=== PATIENT | female | born 1935 | race Caucasian/White ===

== ENCOUNTER → 2021-07-01 10:25 | Outpatient (BNVA) | payer MEDICARE, SELFPAY | PROVIDERS: PCP Internal Medicine; Visit Provider Hospitalist | DX: R91.8 Other nonspecific abnormal finding of lung field (principal); R05.3 Chronic cough; R13.10 Dysphagia, unspecified; R93.3 Abnormal findings on diagnostic imaging of other parts of digestive tract; K44.9 Diaphragmatic hernia without obstruction or gangrene | CPT/HCPCS: 99212 ==

== ENCOUNTER → 2021-09-12 08:48 | Outpatient (BNVA) | payer MEDICARE, SELFPAY | PROVIDERS: PCP Internal Medicine; Referring Provider Internal Medicine; Visit Provider Physician Assistant | DX: R13.10 Dysphagia, unspecified (principal); R93.3 Abnormal findings on diagnostic imaging of other parts of digestive tract; K44.9 Diaphragmatic hernia without obstruction or gangrene; K22.2 Esophageal obstruction; R19.7 Diarrhea, unspecified | CPT/HCPCS: 99202 ==

== ENCOUNTER 2021-09-26 14:46 | Outpatient (REF) | payer MEDICARE, SELFPAY ==
--- NOTE | ~2021-09-26 | FL_ITS ---
EXAMINATION: XR BARIUM SWALLOW CLINICAL INFORMATION: Penetration seen on barium swallow. COMPARISON: Previous barium swallow April 2021. TECHNIQUE: Fluoroscopic guidance was provided for modified barium swallow performed by the speech and hearing department. The patient received liquid barium, thickened liquid barium and various food media mixed with barium. FINDINGS: No aspiration or penetration is seen with any media. FLUOROSCOPY TIME: 1.2 minutes DOSE AREA PRODUCT: 1.2 Brizuela per centimeter squared. FL/FL barium swallow modified IMPRESSION: Fluoroscopic guidance provided for modified barium swallow performed by the speech and hearing department. No aspiration or penetration seen.
--- NOTE | 2021-09-26 18:20 | MHC.SL.IMP ---
Date of Plan of Treatment: 09/26/21 Onset of Symptoms/Illness: 09/26/20 Date Treatment Started: 09/26/21 Admitting Diagnosis: Abnormal barium swallow Chronic cough Dysphagia Hiatal hernia Pulmonary nodules Primary Speech & Language Diagnosis: R13.12 Oropharyngeal Phase Dysphagia Secondary Speech & Language Diagnosis: R41.841 Cognitive communication disorder Reason for Today's Visit: 93651 Modified Barium Swallow Study Pre-evaluation Dietary Consistencies: Regular Pre-evaluation Liquid Consistency: Thin Pre-evaluation Medication Administration: Whole with Liquid Medical History: Modified Barium Swallow Study Fluoroscopic Evaluation of Swallowing Function CPT Code 96465 Evaluation Year: 2021 Reason for Study: Patient coughs during meals. Referring Physician: Ruiz Washington M.D. Evaluating Clinician: Martha Wagner MA, CCC-MAGNETIC DOCTOR Study Number: 1 Patient Name: Xiomara Smith Status: Outpatient, Ambulatory/Assisted Age: 86 Gender: Female MEDICAL HISTORY: Year of Onset or Diagnosis: 2020 Comorbidities: Abnormal barium swallow Chronic cough Dysphagia Hiatal hernia Pulmonary nodules Current (pre-evaluation) Intake/Diet: Route: PO Diet Grade: Regular Liquid Consistencies: Thin Pre-Study Functional Oral Intake Scale (FOIS): 7- Total oral intake with no restrictions Pain: None reported at time of study SUBJECTIVE: Patient is an 86 year old female referred for a modified barium swallow study by Ruiz Washington MD of Pulmonology. Patient attended this exam accompanied by her daughter, who assisted in providing background information. Per chart review, patient is with known history of dementia. Patient?s daughter reported that patient eats regular food with thin liquids; meats are cut into small bite size pieces for her. She reports that patient coughs a lot when eating or drinking, denies pain when swallowing. Patient had barium swallow on 04/27/2021: ?FINDINGS: The patient swallowed barium without difficulty. No nasopharyngeal reflux or tracheal aspiration was identified during initial swallowing. No cricopharyngeal hypertrophy or Zenker's diverticulum was noted. There is normal elevation of the soft palate while saying candy . There is normal apposition of the focal cords while saying E . One-half inch diameter barium tablet passed without difficulty. There is a-motility while swallowing prone. Tertiary contractions are present. There is a small hiatal hernia. There is a Schatzki's ring. No esophageal mucosal irregularity is appreciated. While laying prone, the esophagus did not empty and there were times of reflux from the thoracic esophagus into the cervical esophagus and oropharynx. On one episode of the reflux, there was noted to be transition penetration which elicited a cough. No mickey aspiration.? FL/FL barium swallow IMPRESSION: Severe esophageal dysmotility/a-motility. Small hiatal hernia. No persistent stricture or mucosal abnormality appreciated. Schatzki's ring present. There was noted to be an episode of oropharynx reflux with transient penetration. This elicited a cough reflex.? Oral Motor Exam Facial Symmetry: Symmetrical Mouth Occlusion: Normal Oral-Facial Teeth Characteristics: Intact/Normal Oral-Facial Smile (Lips) Description: Normal Tongue Size: Normal Tongue Excursion Description: Normal Tongue Range of Movement Description: Normal Tongue Movement Characteristics: Normal/Absent Is patient able to manage secretions?: Yes Food and Liquid Trials: Oral Impairment: Lip Closure: Did not test Oral Impairment: Tongue Control During Bolus Hold: 0=Cohesive bolus between tongue to palatal seal Oral Impairment: Bolus Preparation/Mastication: 1=Slow prolonged chewing/mashing with complete re-collection Oral Impairment: Bolus Transport/Lingual Motion: 3=Repetitive/disorganized tongue motion Oral Impairment: Oral Residue: 2=Residue collection on oral structures Oral Impairment:Initiation of Pharyngeal Swallow: 3=Bolus head in pyriforms Pharyngeal Impairment: Soft Palate Elevation: 0=No bolus between soft palate (SP)/pharyngeal wall (PW) Pharyngeal Impairment: Laryngeal Elevation: 1=Partial thyroid cartilage/arytenoids to epiglottic petiole movement Pharyngeal Impairment: Anterior Hyoid Excursion: 1=Partial anterior movement Pharyngeal Impairment: Epiglottic Movement: 0=Complete inversion Pharyngeal Impairment: Laryngeal Vestibular Closure:: 0=Complete: no air/contrast in laryngeal vestibule Pharyngeal Impairment: Pharyngeal Stripping Wave: 1=Present: diminished Pharyngeal Impairment: Pharyngeal Contraction: Did not test Pharyngeal Impairment: Pharyngoesophageal Segment Openin=Complete distension and complete duration: no obstruction of flow Pharyngeal Impairment: Tongue Base (TB) Retraction: 2=Narrow column of contrast/air between TB and posterior PW Pharyngeal Impairment: Pharyngeal Residue: 0=Complete pharyngeal clearance Pharyngeal Impairment: Esophageal Clearance Upright Position: Did not test Impressions and Recommendations Clinical Observations: OBJECTIVE: Time-out: performed at 03:15 Evaluation Start: 03:00; Stop: 03:05 Patient Positioning: Seated 70-90 degrees Viewing Planes: LATERAL ONLY Contrast: MBSImP? Standardized Protocol using commercially prepared, standardized Barium viscosities, including: Varibar? THIN LIQUID (40% w/v, <15 cps) , 1/2 Shortbread Cookie (1 x1 x.25 ) [id number] ID: [id number] [facility]: Lip closure for intraoral bolus containment could not be assessed due to logistical reasons not related to physiologic impairment. Tongue control during bolus hold maintained a cohesive bolus held between tongue to palate seal. Bolus preparation and mastication resulted in slow, prolonged chewing/mashing but with complete re-collection. Bolus transport/lingual motion was with repetitive/disorganized motion of the tongue. Oral residue was a collection on oral structures. Initiation of the pharyngeal swallow occurred when the bolus head was in the pyriform sinuses. Soft palate elevation resulted in no bolus between the soft palate and the pharyngeal wall. Laryngeal elevation was decreased, with partial superior movement of the thyroid cartilage/partial approximation of the arytenoids to the epiglottic petiole. Anterior hyoid excursion demonstrated partial anterior movement. Epiglottic movement resulted in complete inversion. Laryngeal vestibular closure was complete, as indicated by no air or contrast within the laryngeal vestibule at the height of the swallow. Pharyngeal stripping wave was present, but diminished. Pharyngeal contraction could not be determined due to logistical reasons not related to physiologic impairment. Pharyngoesophageal segment opening was completely distended for complete duration with no obstruction of bolus flow. Tongue base retraction allowed a narrow column of contrast or air between the retracted tongue base and the posterior pharyngeal wall. Pharyngeal residue was not present. There was complete pharyngeal clearance. Esophageal clearance in the upright position could not be assessed due to logistical reasons not related to physiologic impairment. Oral Impairment Score: 9 (absence of score, component 1) Pharyngeal Impairment Score: 5 (absence of score, component 13) Esophageal Impairment Score: --- (absence of score, component 17) Laryngeal Penetration and Aspiration: Neither penetration nor aspiration was observed in today's study with Cookie, Thin. ASSESSMENT: Clinician Assessment: This exam was conducted by a multidisciplinary team which included radiologist, speech pathologist, and breeder hen service technician. Patient was seated upright at 90 degree angle in chair for lateral view only. Patient consumed the following liquid and solid consistencies: thin liquid barium via cup, pureed solid (mixture applesauce with barium paste), ground solid (mixture chicken salad with barium paste), regular solid (Sandra Doone cookie coated with barium paste). Patient demonstrated good tongue control, maintaining cohesive bolus between tongue to palatal seal. There was no premature posterior escape. Mastication was mildly prolonged. Posterior lingual movements for transport of bolus were disorganized and repetitive. Mild oral residue cleared with subsequent swallow. Pharyngeal swallow trigger was delayed, initiated as bolus head reached pyriform sinuses. There was no nasopharyngeal reflux. Noted partial laryngeal elevation with partial anterior hyoid excursion. Complete epiglottic inversion. Complete laryngeal vestibular closure. There was no evidence of penetration or aspiration with solids and liquids during this exam. Complete pharyngeal clearance. No obstruction of flow through pharyngoesophageal segment opening. Liquid Intake Recommendation: Thin Liquid Intake Strategies: Small Sips Dietary Recommendations: Regular Medication Administration: Whole with Puree Please contact the pharmacy regarding appropriate crushable or liquid drug formulations that are available whenever modified delivery is recommended. Compensatory Strategies Recommended: Sitting Upright (90 deg), Small Bites and Sips, Alternate Liquids/Solids, Rate of Ingestion Change, Avoid Specific Foods Supervision during eating and or drinking: Total Supervision (1:1) Recommendation for Speech Therapy: NA:Typical Evaluation Text Comment: Intake Recommendations: Route: PO Diet Grade: Regular Liquid Consistencies: Thin Post-Study Functional Oral Intake Scale (FOIS): 7- Total oral intake with no restrictions There was no evidence of aspiration or penetration during this exam. Mild oral residue cleared with subsequent swallow. Complete pharyngeal clearance. Recommend patient to continue with REGULAR solids and THIN liquids, pills in PUREE or LIQUID per tolerance. Continue cutting foods, such as meats, into small bite size pieces as needed, and moisten with sauces and gravies. Avoid any tough foods which are difficult for patient to chew. Aspiration precautions include: -Take small, individual sips of liquid -Avoid ?chugging? consecutive sips of liquid -One bite at a time and chew food well -Moisten food with sauce/gravy as needed -Double swallow or take a sip of liquid to wash residue -Avoid foods which cause you more difficulty swallowing (i.e. tough meats) -Upright 90 degree position when eating/drinking Given underlying dementia, recommend patient and family to continue monitoring dysphagia. Contact PCP if there is any worsening of dysphagia, in which case patient may need re-evaluation. Therapy Recommendations: Therapy will be discontinued Prognosis for Improvement: The prognosis for the patient to meet nutritional needs by mouth is excellent based on degree of impairment. Clinician - Supplemental, Miscellaneous Communication: It is important to note MBSS objective studies are snapshots in time and Patient function might vary with factors such as time of day or concomitant medical conditions. For this reason, the final treatment plan for this patient should rest with their medical care team. Additional recommendations should be considered with the totality of the Patient in mind. Thank for the opportunity to participate in the care of this patient. If you have any questions about the content of this report, please contact the [facility] at [facility]. Bag Bailer Clinician/Clinical Fellow: No Supervisory Statement: N/A Speech Language Pathologist: Martha Wagner M.A., CCC-MAGNETIC DOCTOR
== END 2021-09-26 14:47 | disposition home or self-care (01) ==
LOC: HO.XRAY 14:46
PROVIDERS: Visit Provider Hospitalist
DX: R13.10 Dysphagia, unspecified (principal); R93.3 Abnormal findings on diagnostic imaging of other parts of digestive tract
CPT/HCPCS: 74230; 92611

== ENCOUNTER 2021-10-31 10:20 | Outpatient (REF) | payer MEDICARE, MEDICAID, SELFPAY ==
[2021-10-31 11:42] LABS: Cholesterol 216 mg/dL; HDL Cholesterol 46 mg/dL; LDL Cholesterol Calculated 138 mg/dl; Triglycerides 160 mg/dL
== END 2021-10-31 10:21 | disposition home or self-care (01) ==
LOC: HO.LAB 10:20
PROVIDERS: PCP Internal Medicine; Visit Provider Internal Medicine
DX: Z00.00 Encounter for general adult medical examination without abnormal findings (principal)
CPT/HCPCS: 36415; 80061

== ENCOUNTER 2021-11-10 08:58 | Outpatient (REF) | payer MEDICARE, MEDICAID, SELFPAY ==
[2021-11-10 09:53] LABS: Anion Gap 15 (12-20); Blood Urea Nitrogen 17 mg/dL (9-16); Calcium 9.3 mg/dL (8.4-10.2); Carbon Dioxide 29 mmol/L (22-29); Chloride 102 mmol/L (96-108); Estimated Glomerular Filt Rate > 60; Glucose Random 114 mg/dL (60-115); Sodium 142 mmol/L (135-145)
[2021-11-10 11:18] LABS: Creatinine Urine 177.68 mg/dL; Microalbum/Creatinine Ratio Ur 6.7 ug/mg cr
== END 2021-11-10 08:59 | disposition home or self-care (01) ==
LOC: HO.LAB 08:58
PROVIDERS: Visit Provider Internal Medicine
DX: Z00.00 Encounter for general adult medical examination without abnormal findings (principal)
CPT/HCPCS: 36415; 80048; 82043

== ENCOUNTER 2021-11-14 11:29 | Outpatient (REF) | payer MEDICARE, MEDICAID, SELFPAY ==
[2021-11-14 12:16] LABS: Hematocrit 36.6 % (37.0-47.0); Hemoglobin 11.5 g/dl (12.0-16.0); Mean Corpuscular HGB Conc 31.4 g/dl (31.0-35.0); Mean Corpuscular Hemoglobin 28.8 pg (27.0-33.0); Mean Corpuscular Volume 91.7 fL (80.0-98.0); Mean Platelet Volume 10.8 fL (9.4-12.3); Platelet Count 239 X10*3/uL (160-400); Red Blood Count 3.99 X10*6/uL (4.20-5.50); Red Cell Distribution Width 13.6 % (11.0-16.0); White Blood Count 6.6 X10*3/uL (4.8-10.8)
== END 2021-11-14 11:30 | disposition home or self-care (01) ==
LOC: HO.LAB 11:29
PROVIDERS: PCP Internal Medicine; Visit Provider Internal Medicine
DX: R13.10 Dysphagia, unspecified (principal); R10.84 Generalized abdominal pain; R19.7 Diarrhea, unspecified; R63.4 Abnormal weight loss; R93.3 Abnormal findings on diagnostic imaging of other parts of digestive tract; K22.2 Esophageal obstruction; K44.9 Diaphragmatic hernia without obstruction or gangrene
CPT/HCPCS: 36415; 85027; 99212

== ENCOUNTER → 2021-12-23 09:03 | Outpatient (BNVA) | payer MEDICARE, SELFPAY | PROVIDERS: PCP Internal Medicine; Visit Provider Hospitalist | DX: R91.8 Other nonspecific abnormal finding of lung field (principal); K44.9 Diaphragmatic hernia without obstruction or gangrene; R05.3 Chronic cough; R13.10 Dysphagia, unspecified; R93.3 Abnormal findings on diagnostic imaging of other parts of digestive tract | CPT/HCPCS: 99212 ==

== ENCOUNTER 2022-01-03 07:54 | Outpatient (REF) | payer MEDICARE, SELFPAY ==
--- NOTE | ~2022-01-03 | CT_ITS ---
EXAMINATION: CT CHEST WITH CONTRAST CLINICAL INFORMATION: Dysphagia COMPARISON: Previous chest CT January 2021 and chest x-ray June 2020 TECHNIQUE: Multidetector volumetric CT imaging of the chest was obtained after the administration of 65 mL of Omnipaque 350 intravenous contrast without immediate adverse reactions. Axial MIP volume rendering provided. Sagittal and coronal reformatted images were obtained. This CT examination was performed using dose optimization techniques as appropriate, variously including the following: *Automated exposure control *Adjustment of mA and/or kV according to patient size (this includes techniques or standardized protocols for targeted exams where dose is matched to indication/reason for exam; i.e. extremities or head) *Use of iterative reconstruction technique DLP: 95 mGy-cm FINDINGS: TEACHER DRAMA: LUNGS: Slight volume loss to the left hemithorax with shift the central mediastinal structures to the left. Pleural and parenchymal scarring and 5 mm calcification in the peripheral or subpleural lateral right lower lobe axial image 107 series 5. The area of mucus plugging in the apical posterior segment of the left upper lobe adjacent to the fissure appears slightly improved for example axial image 80 series 5. The lungs are otherwise clear. MEDIASTINUM: Normal heart size. Small pericardial effusion that is stable. No enlarged lymph nodes. Atherosclerotic disease of the thoracic aorta. Normal-appearing thyroid gland. Question mild wall thickening of the thoracic esophagus. Esophageal hernia. CORONARY ARTERY CALCIFICATION: Moderate PLEURA: There is no pleural effusion. No pleural mass. Stable mild pleural thickening adjacent to the lateral right lower lobe. AXILLA: No lymphadenopathy. UPPER ABDOMEN: Bilateral renal cysts. Small left adrenal nodule that is stable. OSSEOUS STRUCTURES: Degenerative changes. Severe old T12 vertebral body compression fracture unchanged. CT/CT chest w IV con IMPRESSION: Stable pleural parenchymal scarring in the lateral right lower lobe. Slight interval improvement in mucus plugging in the left upper lobe. Question mild wall thickening of the thoracic esophagus and small esophageal hernia. Moderate coronary artery calcification. Stable small pericardial effusion. Fleischner guidelines were followed.
[2022-01-03 10:15] LABS: Creatinine POC 0.8 mg/dL (0.5-1.4); GFR POC > 60
== END 2022-01-03 07:55 | disposition home or self-care (01) ==
LOC: HO.CT 07:54
PROVIDERS: PCP Internal Medicine; Visit Provider Internal Medicine
DX: R19.7 Diarrhea, unspecified (principal)
CPT/HCPCS: 71260; 82565

== ENCOUNTER 2022-01-10 11:29 | Emergency (ER) | payer MEDICARE, SELFPAY ==
--- NOTE | ~2022-01-10 | XR_ITS ---
EXAMINATION: XR CHEST CLINICAL INFORMATION: Fever COMPARISON: 07/13/2019 TECHNIQUE: Frontal view of the chest was obtained. FINDINGS: No significant abnormality is noted involving the heart, lungs, mediastinum, bony thorax or soft tissues. Some bibasilar atelectasis is present. Degenerative changes noted in the right shoulder. XR/XR chest 1V IMPRESSION: No acute intrathoracic disease.
--- NOTE | ~2022-01-10 | CT_ITS ---
EXAMINATION: CT HEAD WITHOUT CONTRAST CLINICAL INFORMATION: Worsening altered mental status. COMPARISON: None. TECHNIQUE: Contiguous axial imaging was performed from the skull base to vertex without intravenous administration of contrast. Coronal and sagittal reformatted images are performed at the CT scanner. [This CT examination was performed using dose optimization techniques as appropriate, variously including the following: *Automated exposure control *Adjustment of mA and/or kV according to patient size (this includes techniques or standardized protocols for targeted exams where dose is matched to indication/reason for exam; i.e. extremities or head) *Use of iterative reconstruction technique] DLP: 631 mGy-cm. FINDINGS: There is no evidence of acute intracranial hemorrhage or territorial infarction. No abnormal mass-effect or midline shift is seen. [place]a to white matter differentiation is well preserved. No extra-axial fluid collections are identified. There is generalized global volume loss. There is moderate prominence of the ventricles and the sulci . There is mild hypodensity of the periventricular white matter due to chronic small vessel ischemic disease. There are vascular calcifications of the internal carotid arteries bilaterally. There is no osseous abnormality. The mastoid air cells and visualized portions of the paranasal sinuses are well-aerated. CT/CT head/brain wo IV con IMPRESSION: No acute intracranial pathology.
--- NOTE | ~2022-01-10 | CT_ITS ---
EXAMINATION: CT ABDOMEN AND PELVIS WITH CONTRAST CLINICAL INFORMATION: Weakness COMPARISON: 03/10/2018 TECHNIQUE: Multidetector volumetric images were obtained from the superior aspect of the liver through the pubic symphysis following administration 85 mL of Omnipaque 350 intravenous contrast. Sagittal and coronal reformatted images were obtained on the technologist's workstation. Oral contrast: No This CT examination was performed using dose optimization techniques as appropriate, variously including the following: *Automated exposure control *Adjustment of mA and/or kV according to patient size (this includes techniques or standardized protocols for targeted exams where dose is matched to indication/reason for exam; i.e. extremities or head) *Use of iterative reconstruction technique DLP: 621 mGy-cm FINDINGS: LUNG BASES: The visualized lung bases are clear. Coronary artery calcifications. LIVER, GALLBLADDER, AND BILIARY TREE: The liver is normal in size, shape, and attenuation. No focal hepatic lesion. There is mild intrahepatic biliary ductal dilatation present. Stones are seen throughout the gallbladder lumen. Somewhat distended gallbladder. No wall thickening. The common bile duct is normal in caliber. No ductal filling defects seen. PANCREAS: Unremarkable. SPLEEN: Unremarkable. ADRENAL GLANDS: Unremarkable. KIDNEYS AND URETERS: The kidneys are normal in size, shape, and attenuation. No hydronephrosis or hydroureter. Multiple simple bilateral renal cysts which no specific follow-up is recommended. There is a 0.4 cm right lower pole renal calculus which is 8 cm from the posterior axillary line. BLADDER: Unremarkable. GASTROINTESTINAL TRACT: Small hiatal hernia. Normal caliber small bowel. No obstruction. Normal appendix. No colonic wall thickening or inflammation. Diverticulosis throughout the descending and sigmoid colon. No diverticulitis. ABDOMINAL WALL: No significant hernia is appreciated. LYMPH NODES: Normal. VASCULAR: Normal caliber aorta with moderate to severe atherosclerotic calcification. PELVIC VISCERA: Anteverted uterus. Endometrial thickening, measuring up to 1.8 cm. No adnexal mass. OSSEOUS STRUCTURES: Chronic compression deformity of T12 vertebral body. No acute or suspicious osseous abnormality. CT/CT abdomen pelvis w IV con IMPRESSION: 1. Cholelithiasis. Somewhat distended gallbladder. Mild intrahepatic biliary ductal dilatation. The common bile duct is normal in caliber. No filling defects are seen. No inflammatory changes of the gallbladder. 2. Endometrial thickening measuring up to 1.8 cm. This is abnormal in a postmenopausal patient. Consider further evaluation with nonemergent pelvic ultrasound. 3. Nonobstructing right lower pole renal calculus. Fleischner guidelines were followed.
--- NOTE | ~2022-01-10 | US_ITS ---
EXAMINATION: US ABDOMEN LIMITED CLINICAL INFORMATION: Fevers. COMPARISON: None TECHNIQUE: Real-time imaging of the gallbladder. FINDINGS: GALLBLADDER: Multiple stones layering in the gallbladder lumen. The gallbladder is physiologically distended without evidence of sludge, polyps, wall thickening or pericholecystic fluid. COMMON BILE DUCT: Normal in caliber measuring 0.7 cm in diameter. FREE FLUID: None. US/US abdomen limited IMPRESSION: Cholelithiasis without evidence of acute cholecystitis.
[2022-01-10 12:01] VITALS: BP 106/58; PULSE 80; RESP 18; TEMP 37.9; O2SAT 95; BMI 24.7
[2022-01-10] MEDS: Acetaminophen 325 MG TABLET 650 MG PO (12:14)
[2022-01-10 12:20] LABS: MANUAL DIFF FLAG NO
[2022-01-10 12:23] LABS: Basophils Absolute Auto 0.1 X10*3/uL (0.0-0.2); Basophils Percent Auto 0.7 % (0-2); Eosinophils Absolute Auto 0.2 X10*3/uL (0.0-0.4); Eosinophils Percent Auto 2.1 % (0-4); Hematocrit 34.6 % (37.0-47.0); Hemoglobin 11.1 g/dl (12.0-16.0); Imm Gran Abs Auto 0.01 X10*3/uL (0.00-0.03); Imm Gran Pct Auto 0.1 % (0.0-0.4); Lymphocytes Percent Auto 27.2 % (20-40); Mean Corpuscular HGB Conc 32.1 g/dl (31.0-35.0); Mean Corpuscular Hemoglobin 29.4 pg (27.0-33.0); Mean Corpuscular Volume 91.8 fL (80.0-98.0); Mean Platelet Volume 10.6 fL (9.4-12.3); Monocytes Absolute Auto 0.9 X10*3/uL (0.1-1.2); Neutrophils Absolute Auto 4.2 x10*3/uL (2.0-8.3); Neutrophils Percent Auto 57.9 % (45-73); Platelet Count 201 X10*3/uL (160-400); Red Blood Count 3.77 X10*6/uL (4.20-5.50); White Blood Count 7.2 X10*3/uL (4.8-10.8)
[2022-01-10 12:35] LABS: Lactic Acid 1.7 mmol/L (0.5-2.0)
[2022-01-10 12:41] LABS: Alanine Aminotransferase 11 U/L (0-31); Albumin Level 4.1 g/dL (3.5-5.0); Alkaline Phosphatase 56 U/L (39-117); Anion Gap 16 (12-20); Aspartate Amino Transferase 18 U/L (5-31); Bilirubin Direct 0.2 mg/dL (0.0-0.5); Bilirubin Total 0.5 mg/dL (0.0-1.0); Blood Urea Nitrogen 23 mg/dL (9-16); Calcium 9.6 mg/dL (8.4-10.2); Carbon Dioxide 26 mmol/L (22-29); Chloride 104 mmol/L (96-108); Creatinine Clr Calc Pharmacy 29.1; Estimated Glomerular Filt Rate 42; Glucose Random 174 mg/dL (60-115); Lipase 28 U/L (8-78); Potassium 4.1 mmol/L (3.3-5.1); Sodium 142 mmol/L (135-145); Total Protein 7.2 g/dL (6.5-8.0)
[2022-01-10 12:47] LABS: Appearance Urine Hazy; Color Urine Yellow; Glucose Urine UA Negative (Negative); Leukocyte Esterase Urine Negative (Negative); Nitrite Urine Negative (Negative); PH 5.5 (5.0-9.0); Specific Gravity - Urine 1.025 (1.005-1.025); Urine Blood Negative (Negative); Urine Ketones Negative (Negative); Urine Protein Negative (Neg-Trace)
[2022-01-10 13:09] LABS: Influenza A PCR NEGATIVE (Negative); Influenza B PCR NEGATIVE (Negative); Resp Syncy Virus RNA Qual PCR NEGATIVE (Negative); SARS COV2 PCR INHOUSE NEGATIVE (Negative)
--- NOTE | 2022-01-10 21:33 | PC.NURSE ---
Confirmed with Felicitas Estrada MD whether she wants the overdue blood cultures drawn. states hold off until MD assesses her
[2022-01-10 21:43] VITALS: BP 138/78; PULSE 68; RESP 20; O2SAT 95
--- NOTE | 2022-01-10 21:46 | ECG_ITS ---
Test Reason : WEAKNESS Blood Pressure : / mmHG Vent. Rate : 089 BPM Atrial Rate : 089 BPM P-R Int : 168 ms QRS Dur : 084 ms QT Int : 394 ms P-R-T Axes : 055 002 020 degrees QTc Int : 479 ms Normal sinus rhythm Intra-ventricular conduction delay Nonspecific T wave abnormality Borderline ECG Heart rate has decreased Referred By: Veena Estrada Electronically Signed By:CELIA TAPIA MD
--- NOTE | 2022-01-10 21:46 | PC.NURSE ---
Pt DTR is at bedside and reports, pt has dementia, Pt lungs sound are clear, no signs of edema at the time of the assessment. Pt reports having flank pain by pointing to the site. V/S are stable.
--- NOTE | 2022-01-10 21:58 | ED.WEAKNESS ---
HPI - Weakness General Chief complaint: General Medical Stated complaint: Pain Back Head Chills Time Seen by Provider: 01/10/22 21:35 Source: patient, family and diplomatic interpreter Mode of arrival: ambulatory Limitations: altered mental status (dementia) History of Present Illness HPI Narrative: 86 yo female from home hx of dementia, HH, chronic diarrhea, HTN, DM, coming from home with c/o increased weakness and near falls x 2 weeks. Seems to be worse in the AM recently. This weekend had some n/v and on arrival to the ED today fever of 100.3. No sick contacts. PCP did CT chest showed no trauma or pneumonia. The patient herself cannot verbalize pain complaints to her daughter, but the daughter feels she is off at this time and not really acting like herself. MD Complaint: generalized weakness Onset (ago): week(s) (2) Duration: progressively worsening Location: generalized Severity: moderate Quality: dull Relieving factors: none Exacerbating factors: morning Context: history of similar Associated symptoms: loss of appetite, nausea/vomiting and other (weakness, appears in pain) Related Data Home Medications Medication Instructions Recorded Confirmed aspirin 81 mg chewable tablet 1 tab PO DAILY 03/29/21 carvedilol 12.5 mg tablet 12.5 mg PO BID 03/29/21 citalopram 20 mg tablet 20 mg PO DAILY 03/29/21 furosemide 20 mg tablet 20 mg PO DAILY 03/29/21 memantine 10 mg tablet 10 mg PO BID 03/29/21 metformin 500 mg tablet,extended 500 mg PO BID 03/29/21 release 24 hr nifedipine 30 mg tablet,extended 30 mg PO DAILY 03/29/21 release 24 hr quetiapine 25 mg tablet 25 mg PO BEDTIME 03/29/21 sitagliptin 25 mg tablet (Januvia) 25 mg PO DAILY 03/29/21 cholecalciferol (vitamin D3) 25 25 mcg PO DAILY 12/23/21 mcg (1,000 unit) capsule (Vitamin D3) cyanocobalamin (vitamin B-12) 500 mcg sublingual 12/23/21 mcg disintegrating tablet,sublingual melatonin 5 mg tablet 5 mg PO BEDTIME 12/23/21 Allergies Allergy/AdvReac Type Severity Reaction Status Date / Time No Known Allergies Allergy Verified 12/23/21 09:20 [No Known Allergies*] Review of Systems Review of Systems: ROS unable to be obtained due to dementia PMFSH Past Medical History Attestation statement: The following information was validated with the patient. Medical History (Updated 01/11/22 @ 00:58 by Veena Estrada DO) Abnormal barium swallow Chronic cough Dementia Dysphagia Hiatal hernia Pulmonary nodules Social History Social History Household Members: Family Alcohol intake: former Patient Tobacco Use Status: Former Tobacco user Smoked in Last 30 Days: No Use of substances other than those prescribed or required for medical reasons: No Advance Directives: No Advance Directives Information Provided: No Physical Exam Vital Signs: Vital Signs: Last Vital Signs Temp 98.4 F 01/10/22 23:39 Pulse 88 01/10/22 23:39 Resp 16 01/10/22 23:39 BP 142/74 H 01/10/22 23:39 Pulse Ox 97 01/10/22 23:39 O2 Del Method 01/10/22 23:39 BMI result Body Mass Index 24.7 Appearance: Alert. Confused but follows commands and seems not notice her daughter. No acute distress. Eyes: Pupils equal, round and reactive to light. ENT: Pharynx normal. Neck: Normal inspection. Neck supple. no meningeal signs CVS: Normal heart rate and rhythm. Pulses normal. Respiratory: No respiratory distress. Breath sounds normal. Abdomen: Soft and nontender. Does not grimace Skin: Skin warm and dry. Normal skin color. Normal skin turgor. Extremities: Ntrace pitting ankle lower extremity edema. No calf ttp Neuro: at her baseline No motor deficit. No sensory deficit. Course Course Course Narrative: US no acute cholecystitis no UTI no pneumonia infl markers are elevated but that is the only abnormality at this time no source of temp 100.3, I do not think this is meningitis, after discussion with daughter - patient has outpatient colonoscopy planned for chronic fecal incontinence. will place PT/CM for possible acute STR no abdominal pain now, no elevated LFTs doubt acute raf Patient placed in physician observation at . The indication for observation is that the patient needs more time to see if her weakness improves or if she will need to be admitted. At this time the patient is at her baseline, lungs clear, CV RRR, abd nontender, neuro is at her baseline. MDM - Weakness MDM Narrative Medical decision making narrative: 86 yo female from home hx of dementia, HH, chronic diarrhea, HTN, DM at this time very nonspecific complaints weakness, off x 2 weeks, fever on arrival to ED 100.3 - no meningeal signs at this time, will add on infl markers, CT head for ICH, CT abdomen for occult infection, EKG, CXR for pneumonia. She has no meningeal signs or a WBC count here meningitis seems unlikely. Lab Data Result diagrams: 01/10/22 12:14 01/10/22 12:14 Labs: Lab Results 01/10/22 01/10/22 01/10/22 Range/Units 12:14 12:14 12:14 WBC 7.2 (4.8-10.8) X10*3/uL RBC 3.77 L (4.20-5.50) X10*6/uL Hgb 11.1 L (12.0-16.0) g/dl Hct 34.6 L (37.0-47.0) % MCV 91.8 (80.0-98.0) fL MCH 29.4 (27.0-33.0) pg MCHC 32.1 (31.0-35.0) g/dl RDW 14.0 (11.0-16.0) % Plt Count 201 (160-400) X10*3/uL MPV 10.6 (9.4-12.3) fL Immature Gran % (Auto) 0.1 (0.0-0.4) % Neut % (Auto) 57.9 (45-73) % Lymph % (Auto) 27.2 (20-40) % Bee % (Auto) 12.0 H (2-11) % Eos % (Auto) 2.1 (0-4) % Baso % (Auto) 0.7 (0-2) % Lymph # (Auto) 2.0 (1.2-4.9) X10*3/uL Bee # (Auto) 0.9 (0.1-1.2) X10*3/uL Eos # (Auto) 0.2 (0.0-0.4) X10*3/uL Baso # (Auto) 0.1 (0.0-0.2) X10*3/uL Abs Immat Gran (auto) 0.01 (0.00-0.03) X10*3/uL Absolute Neuts (auto) 4.2 (2.0-8.3) x10*3/uL Absolute Nucleated RBC 0.000 (0.0-0.012) X10*3/uL Nucleated RBC % (auto) 0.0 (0.0-0.2) /100WBC ESR (0-20) MM/HR Sodium 142 (135-145) mmol/L Potassium 4.1 (3.3-5.1) mmol/L Chloride 104 (96-108) mmol/L Carbon Dioxide 26 (22-29) mmol/L Anion Gap 16 (12-20) BUN 23 H (9-16) mg/dL Creatinine 1.22 (0.5-1.4) mg/dL Estim Creat Clear Calc 29.1 Estimated GFR 42 Random Glucose 174 H (60-115) mg/dL Lactic Acid 1.7 (0.5-2.0) mmol/L Calcium 9.6 (8.4-10.2) mg/dL Total Bilirubin 0.5 (0.0-1.0) mg/dL Direct Bilirubin 0.2 (0.0-0.5) mg/dL AST 18 (5-31) U/L ALT 11 (0-31) U/L Alkaline Phosphatase 56 (39-117) U/L Troponin I High Sens (<3.5-17.0) ng/L C-Reactive Protein (< or = 0.50) mg/dL Total Protein 7.2 (6.5-8.0) g/dL Albumin 4.1 (3.5-5.0) g/dL Lipase 28 (8-78) U/L Urine Color Urine Appearance Urine pH (5.0-9.0) Ur Specific [place] (1.005-1.025) Urine Protein (Neg-Trace) mg/dL Urine Glucose (UA) (Negative) mg/dL Urine Ketones (Negative) mg/dL Urine Blood (Negative) Urine Nitrite (Negative) Ur Leukocyte Esterase (Negative) Influenza Type A (PCR) (Negative) Influenza Type B (PCR) (Negative) RSV RNA Qual (PCR) (Negative) SARS-CoV-2 RNA (RT-PCR) (Negative) 01/10/22 01/10/22 01/11/22 Range/Units 12:14 12:36 00:11 WBC (4.8-10.8) X10*3/uL RBC (4.20-5.50) X10*6/uL Hgb (12.0-16.0) g/dl Hct (37.0-47.0) % MCV (80.0-98.0) fL MCH (27.0-33.0) pg MCHC (31.0-35.0) g/dl RDW (11.0-16.0) % Plt Count (160-400) X10*3/uL MPV (9.4-12.3) fL Immature Gran % (Auto) (0.0-0.4) % Neut % (Auto) (45-73) % Lymph % (Auto) (20-40) % Bee % (Auto) (2-11) % Eos % (Auto) (0-4) % Baso % (Auto) (0-2) % Lymph # (Auto) (1.2-4.9) X10*3/uL Bee # (Auto) (0.1-1.2) X10*3/uL Eos # (Auto) (0.0-0.4) X10*3/uL Baso # (Auto) (0.0-0.2) X10*3/uL Abs Immat Gran (auto) (0.00-0.03) X10*3/uL Absolute Neuts (auto) (2.0-8.3) x10*3/uL Absolute Nucleated RBC (0.0-0.012) X10*3/uL Nucleated RBC % (auto) (0.0-0.2) /100WBC ESR 43 H (0-20) MM/HR Sodium (135-145) mmol/L Potassium (3.3-5.1) mmol/L Chloride (96-108) mmol/L Carbon Dioxide (22-29) mmol/L Anion Gap (12-20) BUN (9-16) mg/dL Creatinine (0.5-1.4) mg/dL Estim Creat Clear Calc Estimated GFR Random Glucose (60-115) mg/dL Lactic Acid (0.5-2.0) mmol/L Calcium (8.4-10.2) mg/dL Total Bilirubin (0.0-1.0) mg/dL Direct Bilirubin (0.0-0.5) mg/dL AST (5-31) U/L ALT (0-31) U/L Alkaline Phosphatase (39-117) U/L Troponin I High Sens (<3.5-17.0) ng/L C-Reactive Protein (< or = 0.50) mg/dL Total Protein (6.5-8.0) g/dL Albumin (3.5-5.0) g/dL Lipase (8-78) U/L Urine Color Yellow Urine Appearance Hazy Urine pH 5.5 (5.0-9.0) Ur Specific [place] 1.025 (1.005-1.025) Urine Protein Negative (Neg-Trace) mg/dL Urine Glucose (UA) Negative (Negative) mg/dL Urine Ketones Negative (Negative) mg/dL Urine Blood Negative (Negative) Urine Nitrite Negative (Negative) Ur Leukocyte Esterase Negative (Negative) Influenza Type A (PCR) NEGATIVE (Negative) Influenza Type B (PCR) NEGATIVE (Negative) RSV RNA Qual (PCR) NEGATIVE (Negative) SARS-CoV-2 RNA (RT-PCR) NEGATIVE (Negative) 01/11/22 01/11/22 Range/Units 00:11 00:11 WBC (4.8-10.8) X10*3/uL RBC (4.20-5.50) X10*6/uL Hgb (12.0-16.0) g/dl Hct (37.0-47.0) % MCV (80.0-98.0) fL MCH (27.0-33.0) pg MCHC (31.0-35.0) g/dl RDW (11.0-16.0) % Plt Count (160-400) X10*3/uL MPV (9.4-12.3) fL Immature Gran % (Auto) (0.0-0.4) % Neut % (Auto) (45-73) % Lymph % (Auto) (20-40) % Bee % (Auto) (2-11) % Eos % (Auto) (0-4) % Baso % (Auto) (0-2) % Lymph # (Auto) (1.2-4.9) X10*3/uL Bee # (Auto) (0.1-1.2) X10*3/uL Eos # (Auto) (0.0-0.4) X10*3/uL Baso # (Auto) (0.0-0.2) X10*3/uL Abs Immat Gran (auto) (0.00-0.03) X10*3/uL Absolute Neuts (auto) (2.0-8.3) x10*3/uL Absolute Nucleated RBC (0.0-0.012) X10*3/uL Nucleated RBC % (auto) (0.0-0.2) /100WBC ESR (0-20) MM/HR Sodium (135-145) mmol/L Potassium (3.3-5.1) mmol/L Chloride (96-108) mmol/L Carbon Dioxide (22-29) mmol/L Anion Gap (12-20) BUN (9-16) mg/dL Creatinine (0.5-1.4) mg/dL Estim Creat Clear Calc Estimated GFR Random Glucose (60-115) mg/dL Lactic Acid (0.5-2.0) mmol/L Calcium (8.4-10.2) mg/dL Total Bilirubin (0.0-1.0) mg/dL Direct Bilirubin (0.0-0.5) mg/dL AST (5-31) U/L ALT (0-31) U/L Alkaline Phosphatase (39-117) U/L Troponin I High Sens 5.9 (<3.5-17.0) ng/L C-Reactive Protein 5.10 H (< or = 0.50) mg/dL Total Protein (6.5-8.0) g/dL Albumin (3.5-5.0) g/dL Lipase (8-78) U/L Urine Color Urine Appearance Urine pH (5.0-9.0) Ur Specific [place] (1.005-1.025) Urine Protein (Neg-Trace) mg/dL Urine Glucose (UA) (Negative) mg/dL Urine Ketones (Negative) mg/dL Urine Blood (Negative) Urine Nitrite (Negative) Ur Leukocyte Esterase (Negative) Influenza Type A (PCR) (Negative) Influenza Type B (PCR) (Negative) RSV RNA Qual (PCR) (Negative) SARS-CoV-2 RNA (RT-PCR) (Negative) ECG Data Attestation: I personally reviewed and interpreted this ECG as follows: ECG interpretation date: 01/10/22 ECG interpretation time: 23:31 Interpretation: Rate: 89 Rhythm: NSR Parshall: normal Normal P waves. Normal SHANTA. Normal QRS complex. ST T wave : normal no LOUIS qTC: normal prior studies: no acute ischemia The study has been interpreted contemporaneously by me. . Discharge Plan Discharge Clinical Impression: Weakness, Gallstones Patient Disposition: Still a Patient Prescriptions: No Action Januvia 25 mg tablet 25 mg PO DAILY memantine 10 mg tablet 10 mg PO BID metformin 500 mg tablet extended release 24 hr 500 mg PO BID furosemide 20 mg tablet 20 mg PO DAILY aspirin 81 mg tablet,chewable 1 tab PO DAILY citalopram 20 mg tablet 20 mg PO DAILY carvedilol 12.5 mg tablet 12.5 mg PO BID quetiapine 25 mg tablet 25 mg PO BEDTIME nifedipine 30 mg tablet extended release 24hr 30 mg PO DAILY cholecalciferol (vitamin D3) [Vitamin D3] 25 mcg (1,000 unit) capsule 25 mcg PO DAILY melatonin 5 mg tablet 5 mg PO BEDTIME cyanocobalamin (vitamin B-12) 500 mcg tablet,disintegrating sublingual
[2022-01-10] MEDS: 0.9 % Sodium Chloride 500 ML IV (22:31)
[2022-01-10 22:33] VITALS: TEMP 37.5
[2022-01-10] MEDS: iohexoL 350 MG/ML 100 ML INFUS..BTL IV (22:57)
[2022-01-10 23:39] VITALS: BP 142/74; PULSE 88; RESP 16; TEMP 36.9; O2SAT 97
[2022-01-10] MEDS: Ibuprofen 400 MG TABLET PO (23:41)
[2022-01-11 00:39] LABS: Troponin-I High Sensitivity 5.9 ng/L (<3.5-17.0)
[2022-01-11 00:55] LABS: Erythrocyte Sedimentation Rate 43 MM/HR (0-20)
[2022-01-11 02:00] VITALS: BP 127/66; PULSE 95; RESP 16; TEMP 36.5; O2SAT 97
--- NOTE | 2022-01-11 03:10 | ED_ITS ---
HPI - General Adult General Chief complaint: General Medical Stated complaint: Pain Back Head Chills Time Seen by Provider: 01/10/22 21:35 Source: patient, family and spanish medical interpreter Mode of arrival: ambulatory Limitations: altered mental status (dementia) Related Data Home Medications Medication Instructions Recorded Confirmed aspirin 81 mg chewable tablet 1 tab PO DAILY 03/29/21 carvedilol 12.5 mg tablet 12.5 mg PO BID 03/29/21 citalopram 20 mg tablet 20 mg PO DAILY 03/29/21 furosemide 20 mg tablet 20 mg PO DAILY 03/29/21 memantine 10 mg tablet 10 mg PO BID 03/29/21 metformin 500 mg tablet,extended 500 mg PO BID 03/29/21 release 24 hr nifedipine 30 mg tablet,extended 30 mg PO DAILY 03/29/21 release 24 hr quetiapine 25 mg tablet 25 mg PO BEDTIME 03/29/21 sitagliptin 25 mg tablet (Januvia) 25 mg PO DAILY 03/29/21 cholecalciferol (vitamin D3) 25 25 mcg PO DAILY 12/23/21 mcg (1,000 unit) capsule (Vitamin D3) cyanocobalamin (vitamin B-12) 500 mcg sublingual 12/23/21 mcg disintegrating tablet,sublingual melatonin 5 mg tablet 5 mg PO BEDTIME 12/23/21 Allergies Allergy/AdvReac Type Severity Reaction Status Date / Time No Known Allergies Allergy Verified 12/23/21 09:20 [No Known Allergies*] [facility] Past Medical History Medical History (Updated 01/11/22 @ 00:58 by Veena Estrada DO) Abnormal barium swallow Chronic cough Dementia Dysphagia Hiatal hernia Pulmonary nodules Social History Social History Household Members: Family Alcohol intake: former Patient Tobacco Use Status: Former Tobacco user Smoked in Last 30 Days: No Use of substances other than those prescribed or required for medical reasons: No Advance Directives: No Advance Directives Information Provided: No Physical Exam ED Vital Signs: Vital Signs - 24 hr 01/10/22 12:01 01/10/22 21:43 01/10/22 22:33 Temperature 100.3 F 99.5 F Pulse Rate 80 68 Respiratory Rate 18 20 Blood Pressure 106/58 L 138/78 Pulse Oximetry 95 95 Oxygen Delivery Method Room Air Room Air 01/10/22 23:39 01/11/22 02:00 Temperature 98.4 F 97.7 F Pulse Rate 88 95 Respiratory Rate 16 16 Blood Pressure 142/74 H 127/66 Pulse Oximetry 97 97 Oxygen Delivery Method Room Air Room Air BMI result Body Mass Index 24.7 Medical Decision Making Lab Data Result diagrams: 01/10/22 12:14 01/10/22 12:14 Labs: Lab Results 01/10/22 01/10/22 01/10/22 Range/Units 12:14 12:14 12:14 WBC 7.2 (4.8-10.8) X10*3/uL RBC 3.77 L (4.20-5.50) X10*6/uL Hgb 11.1 L (12.0-16.0) g/dl Hct 34.6 L (37.0-47.0) % MCV 91.8 (80.0-98.0) fL MCH 29.4 (27.0-33.0) pg MCHC 32.1 (31.0-35.0) g/dl RDW 14.0 (11.0-16.0) % Plt Count 201 (160-400) X10*3/uL MPV 10.6 (9.4-12.3) fL Immature Gran % (Auto) 0.1 (0.0-0.4) % Neut % (Auto) 57.9 (45-73) % Lymph % (Auto) 27.2 (20-40) % [place] % (Auto) 12.0 H (2-11) % Eos % (Auto) 2.1 (0-4) % Baso % (Auto) 0.7 (0-2) % Lymph # (Auto) 2.0 (1.2-4.9) X10*3/uL [place] # (Auto) 0.9 (0.1-1.2) X10*3/uL Eos # (Auto) 0.2 (0.0-0.4) X10*3/uL Baso # (Auto) 0.1 (0.0-0.2) X10*3/uL Abs Immat Gran (auto) 0.01 (0.00-0.03) X10*3/uL Absolute Neuts (auto) 4.2 (2.0-8.3) x10*3/uL Absolute Nucleated RBC 0.000 (0.0-0.012) X10*3/uL Nucleated RBC % (auto) 0.0 (0.0-0.2) /100WBC ESR (0-20) MM/HR Sodium 142 (135-145) mmol/L Potassium 4.1 (3.3-5.1) mmol/L Chloride 104 (96-108) mmol/L Carbon Dioxide 26 (22-29) mmol/L Anion Gap 16 (12-20) BUN 23 H (9-16) mg/dL Creatinine 1.22 (0.5-1.4) mg/dL Estim Creat Clear Calc 29.1 Estimated GFR 42 Random Glucose 174 H (60-115) mg/dL Lactic Acid 1.7 (0.5-2.0) mmol/L Calcium 9.6 (8.4-10.2) mg/dL Total Bilirubin 0.5 (0.0-1.0) mg/dL Direct Bilirubin 0.2 (0.0-0.5) mg/dL AST 18 (5-31) U/L ALT 11 (0-31) U/L Alkaline Phosphatase 56 (39-117) U/L Troponin I High Sens (<3.5-17.0) ng/L C-Reactive Protein (< or = 0.50) mg/dL Total Protein 7.2 (6.5-8.0) g/dL Albumin 4.1 (3.5-5.0) g/dL Lipase 28 (8-78) U/L Urine Color Urine Appearance Urine pH (5.0-9.0) Ur Specific Whitmer (1.005-1.025) Urine Protein (Neg-Trace) mg/dL Urine Glucose (UA) (Negative) mg/dL Urine Ketones (Negative) mg/dL Urine Blood (Negative) Urine Nitrite (Negative) Ur Leukocyte Esterase (Negative) Influenza Type A (PCR) (Negative) Influenza Type B (PCR) (Negative) RSV RNA Qual (PCR) (Negative) SARS-CoV-2 RNA (RT-PCR) (Negative) 01/10/22 01/10/22 01/11/22 Range/Units 12:14 12:36 00:11 WBC (4.8-10.8) X10*3/uL RBC (4.20-5.50) X10*6/uL Hgb (12.0-16.0) g/dl Hct (37.0-47.0) % MCV (80.0-98.0) fL MCH (27.0-33.0) pg MCHC (31.0-35.0) g/dl RDW (11.0-16.0) % Plt Count (160-400) X10*3/uL MPV (9.4-12.3) fL Immature Gran % (Auto) (0.0-0.4) % Neut % (Auto) (45-73) % Lymph % (Auto) (20-40) % [place] % (Auto) (2-11) % Eos % (Auto) (0-4) % Baso % (Auto) (0-2) % Lymph # (Auto) (1.2-4.9) X10*3/uL [place] # (Auto) (0.1-1.2) X10*3/uL Eos # (Auto) (0.0-0.4) X10*3/uL Baso # (Auto) (0.0-0.2) X10*3/uL Abs Immat Gran (auto) (0.00-0.03) X10*3/uL Absolute Neuts (auto) (2.0-8.3) x10*3/uL Absolute Nucleated RBC (0.0-0.012) X10*3/uL Nucleated RBC % (auto) (0.0-0.2) /100WBC ESR 43 H (0-20) MM/HR Sodium (135-145) mmol/L Potassium (3.3-5.1) mmol/L Chloride (96-108) mmol/L Carbon Dioxide (22-29) mmol/L Anion Gap (12-20) BUN (9-16) mg/dL Creatinine (0.5-1.4) mg/dL Estim Creat Clear Calc Estimated GFR Random Glucose (60-115) mg/dL Lactic Acid (0.5-2.0) mmol/L Calcium (8.4-10.2) mg/dL Total Bilirubin (0.0-1.0) mg/dL Direct Bilirubin (0.0-0.5) mg/dL AST (5-31) U/L ALT (0-31) U/L Alkaline Phosphatase (39-117) U/L Troponin I High Sens (<3.5-17.0) ng/L C-Reactive Protein (< or = 0.50) mg/dL Total Protein (6.5-8.0) g/dL Albumin (3.5-5.0) g/dL Lipase (8-78) U/L Urine Color Yellow Urine Appearance Hazy Urine pH 5.5 (5.0-9.0) Ur Specific Whitmer 1.025 (1.005-1.025) Urine Protein Negative (Neg-Trace) mg/dL Urine Glucose (UA) Negative (Negative) mg/dL Urine Ketones Negative (Negative) mg/dL Urine Blood Negative (Negative) Urine Nitrite Negative (Negative) Ur Leukocyte Esterase Negative (Negative) Influenza Type A (PCR) NEGATIVE (Negative) Influenza Type B (PCR) NEGATIVE (Negative) RSV RNA Qual (PCR) NEGATIVE (Negative) SARS-CoV-2 RNA (RT-PCR) NEGATIVE (Negative) 01/11/22 01/11/22 Range/Units 00:11 00:11 WBC (4.8-10.8) X10*3/uL RBC (4.20-5.50) X10*6/uL Hgb (12.0-16.0) g/dl Hct (37.0-47.0) % MCV (80.0-98.0) fL MCH (27.0-33.0) pg MCHC (31.0-35.0) g/dl RDW (11.0-16.0) % Plt Count (160-400) X10*3/uL MPV (9.4-12.3) fL Immature Gran % (Auto) (0.0-0.4) % Neut % (Auto) (45-73) % Lymph % (Auto) (20-40) % [place] % (Auto) (2-11) % Eos % (Auto) (0-4) % Baso % (Auto) (0-2) % Lymph # (Auto) (1.2-4.9) X10*3/uL [place] # (Auto) (0.1-1.2) X10*3/uL Eos # (Auto) (0.0-0.4) X10*3/uL Baso # (Auto) (0.0-0.2) X10*3/uL Abs Immat Gran (auto) (0.00-0.03) X10*3/uL Absolute Neuts (auto) (2.0-8.3) x10*3/uL Absolute Nucleated RBC (0.0-0.012) X10*3/uL Nucleated RBC % (auto) (0.0-0.2) /100WBC ESR (0-20) MM/HR Sodium (135-145) mmol/L Potassium (3.3-5.1) mmol/L Chloride (96-108) mmol/L Carbon Dioxide (22-29) mmol/L Anion Gap (12-20) BUN (9-16) mg/dL Creatinine (0.5-1.4) mg/dL Estim Creat Clear Calc Estimated GFR Random Glucose (60-115) mg/dL Lactic Acid (0.5-2.0) mmol/L Calcium (8.4-10.2) mg/dL Total Bilirubin (0.0-1.0) mg/dL Direct Bilirubin (0.0-0.5) mg/dL AST (5-31) U/L ALT (0-31) U/L Alkaline Phosphatase (39-117) U/L Troponin I High Sens 5.9 (<3.5-17.0) ng/L C-Reactive Protein 5.10 H (< or = 0.50) mg/dL Total Protein (6.5-8.0) g/dL Albumin (3.5-5.0) g/dL Lipase (8-78) U/L Urine Color Urine Appearance Urine pH (5.0-9.0) Ur Specific [place] (1.005-1.025) Urine Protein (Neg-Trace) mg/dL Urine Glucose (UA) (Negative) mg/dL Urine Ketones (Negative) mg/dL Urine Blood (Negative) Urine Nitrite (Negative) Ur Leukocyte Esterase (Negative) Influenza Type A (PCR) (Negative) Influenza Type B (PCR) (Negative) RSV RNA Qual (PCR) (Negative) SARS-CoV-2 RNA (RT-PCR) (Negative) Discharge Plan Discharge Clinical Impression: Weakness, Gallstones Patient Disposition: Home, Self-Care Instructions: Gallstones (ED), Weakness (ED) Additional Instructions: Drink plenty of fluids Follow-up with your PCP Report to the ER if pain in the right upper abdomen Prescriptions: No Action Januvia 25 mg tablet 25 mg PO DAILY memantine 10 mg tablet 10 mg PO BID metformin 500 mg tablet extended release 24 hr 500 mg PO BID furosemide 20 mg tablet 20 mg PO DAILY aspirin 81 mg tablet,chewable 1 tab PO DAILY citalopram 20 mg tablet 20 mg PO DAILY carvedilol 12.5 mg tablet 12.5 mg PO BID quetiapine 25 mg tablet 25 mg PO BEDTIME nifedipine 30 mg tablet extended release 24hr 30 mg PO DAILY cholecalciferol (vitamin D3) [Vitamin D3] 25 mcg (1,000 unit) capsule 25 mcg PO DAILY melatonin 5 mg tablet 5 mg PO BEDTIME cyanocobalamin (vitamin B-12) 500 mcg tablet,disintegrating sublingual Interventions: ED Discharge Assessment Last Done: 01/11/22 03:30 Discharge Date/Time: 01/11/22 03:31
--- NOTE | 2022-01-11 07:27 | MHC.CM.ED ---
Received case management consult overnight. Patient already d/c'd home.
== END 2022-01-11 03:31 | disposition home or self-care (01) ==
PROVIDERS: Emergency Provider Emergency Medicine; PCP Internal Medicine
DX: K85.10 Biliary acute pancreatitis without necrosis or infection (principal); R51.9 Headache, unspecified; R11.2 Nausea with vomiting, unspecified; R50.9 Fever, unspecified; R53.1 Weakness; Z20.822 Contact with and (suspected) exposure to COVID-19; Z79.899 Other long term (current) drug therapy; Z87.891 Personal history of nicotine dependence
CPT/HCPCS: 0241U; 36415; 70450; 71045; 74177; 76705; 80048; 80076; 81003; 83605; 83690; 84484; 85025; 85652; 86140; 87040; 93005; 96360; 99285; Q9967

== ENCOUNTER → 2022-01-13 13:02 | Outpatient (BNVA) | payer MEDICARE, SELFPAY | PROVIDERS: PCP Internal Medicine; Visit Provider Internal Medicine | DX: R50.9 Fever, unspecified (principal); R53.1 Weakness; M54.2 Cervicalgia; R19.7 Diarrhea, unspecified; K22.2 Esophageal obstruction; R13.10 Dysphagia, unspecified; R93.89 Abnormal findings on diagnostic imaging of other specified body structures | CPT/HCPCS: 99212 ==

== ENCOUNTER → 2022-01-23 09:31 | Outpatient (BNVA) | payer MEDICARE, SELFPAY | PROVIDERS: PCP Internal Medicine; Visit Provider Surgery | DX: K80.20 Calculus of gallbladder without cholecystitis without obstruction (principal); K22.2 Esophageal obstruction; R93.3 Abnormal findings on diagnostic imaging of other parts of digestive tract; R13.10 Dysphagia, unspecified; K44.9 Diaphragmatic hernia without obstruction or gangrene; R05.3 Chronic cough | CPT/HCPCS: 99202 ==

== ENCOUNTER 2022-02-28 15:35 | Outpatient (REF) | payer MEDICARE, SELFPAY ==
--- NOTE | ~2022-02-28 | US_ITS ---
EXAMINATION: US PELVIS TRANSVAGINAL CLINICAL INFORMATION: Menorrhagia. COMPARISON: CT scan of 01/10/2022. TECHNIQUE: Transcutaneous and transvaginal pelvic ultrasound. Transvaginal scanning was performed after voiding to better evaluate the endometrium and adnexa. FINDINGS: The uterus measures 6.6 x 3.6 x 4.9 cm. The uterus is anteverted. No suspicious abnormalities region of the cervix. Nabothian cysts present. The uterine contour is smooth. The endometrium measures 0.9 cm. The endometrium is heterogeneous in echotexture without focal hyperechoic polyp identified. No focal abnormalities within the myometrium. The right ovary measures approximately 1.6 x 1.4 x 1.8 cm. The calculated right ovarian volume is approximately 2.1 mL. No abnormal right adnexal findings. The left ovary was not identified. No left adnexal abnormality appreciated. No significant free pelvic fluid. US/US pelvic and transvaginal IMPRESSION: Prominent heterogeneous echotexture endometrium. No definite abnormal vascular flow is seen This is a nonspecific finding and may be seen with hematoma, endometrial hyperplasia, tamoxifen-related endometrial changes, hormonal placement therapy, and possible endometrial carcinoma. No focal hyperechoic structure seen to suggest polyp.
== END 2022-02-28 15:36 | disposition home or self-care (01) ==
LOC: HO.US 15:35
PROVIDERS: Visit Provider Internal Medicine
DX: N93.8 Other specified abnormal uterine and vaginal bleeding (principal)
CPT/HCPCS: 76830; 76856

== ENCOUNTER 2022-03-30 07:39 | Day surgery (SDC) | payer OTHER, SELFPAY ==
[2022-03-27 14:55] VITALS: BMI 25.6
--- NOTE | 2022-03-28 13:26 | HO.ANESPROP2 ---
Documented by User: Petty Mann NP 03/28/22 13:27 HPI - Anesthesia Eval Consult details Narrative: 86yo F for Upper Endoscopy and Colonoscopy Hx dementia PMFSH Active Problems Active Problems: All Active Problems (Updated 01/23/22 @ 10:16 by Bryon Palma MD) Post herpetic neuralgia (Acute) Schatzki's ring (Acute) Diarrhea (Acute) Neck pain (Acute) Fever (Acute) Endometrial thickening on ultrasound (Acute) Cholelithiasis (Acute) Dementia (Acute) Abnormal barium swallow (Acute) Dysphagia (Acute) Chronic cough (Acute) Hiatal hernia (Acute) Pulmonary nodules (Acute) Past Medical History Medical History (Updated 01/23/22 @ 10:16 by Bryon Palma MD) Abnormal barium swallow Chronic cough Dementia Dysphagia Hiatal hernia Pulmonary nodules Surgical History Surgical History (Updated 03/27/22 @ 14:42 by Toshia Solano RN) Hx of cystoscopy Social History Social History Household Members: Family Alcohol intake: former Patient Tobacco Use Status: Former Tobacco user Advance Directives: No Advance Directives Information Provided: Yes Meds Allergies Allergy/AdvReac Type Severity Reaction Status Date / Time No Known Allergies Allergy Verified 01/23/22 09:48 [No Known Allergies*] Home Medications Medication Instructions Recorded Confirmed Last Taken Type aspirin 81 mg chewable tablet 1 tab PO DAILY 03/29/21 03/27/22 Unknown History carvedilol 12.5 mg tablet 12.5 mg PO BID 03/29/21 03/27/22 Unknown History citalopram 20 mg tablet 20 mg PO DAILY 03/29/21 03/27/22 Unknown History furosemide 20 mg tablet 20 mg PO DAILY 03/29/21 03/27/22 Unknown History memantine 10 mg tablet 10 mg PO BID 03/29/21 03/27/22 Unknown History metformin 500 mg tablet,extended 500 mg PO BID 03/29/21 03/27/22 Unknown History release 24 hr nifedipine 30 mg tablet,extended 30 mg PO DAILY 03/29/21 03/27/22 Unknown History release 24 hr quetiapine 25 mg tablet 25 mg PO BEDTIME 03/29/21 03/27/22 Unknown History sitagliptin phosphate 25 mg tablet 25 mg PO DAILY 03/29/21 03/27/22 Unknown History (Januvia) cholecalciferol (vitamin D3) 25 25 mcg PO DAILY 12/23/21 03/27/22 Unknown History mcg (1,000 unit) capsule (Vitamin D3) cyanocobalamin (vitamin B-12) 500 500 mcg sublingual DAILY 12/23/21 03/27/22 Unknown History mcg disintegrating tablet,sublingual melatonin 5 mg tablet 5 mg PO BEDTIME 12/23/21 03/27/22 Unknown History lidocaine 5 % topical patch 1 patch topical DAILY 01/13/22 01/23/22 Unknown History Exam Exam Date and Time: March 28, 2022 1326 Height,Weight and Vital Signs: Height 5 ft 2 in Weight 63.503 kg Pertinent Lab Results Pertinent Lab Results: Laboratory Tests 01/10/22 01/10/22 12:14 12:14 WBC 7.2 Hgb 11.1 L Hct 34.6 L Plt Count 201 Sodium 142 Potassium 4.1 Chloride 104 Carbon Dioxide 26 BUN 23 H Creatinine 1.22 Narrative Narrative: EKG 12/2021 Vent. Rate : 089 BPM ? ? Atrial Rate : 089 BPM ?? P-R Int : 168 ms? QRS Dur : 084 ms ? ? QT Int : 394 ms ? ? ? P-R-T Axes : 055 002 020 degrees ?? QTc Int : 479 ms ? Normal sinus rhythm Intra-ventricular conduction delay Nonspecific T wave abnormality Borderline ECG Heart rate has decreased Assessment and Plan Assessment Anesthesia Assessment: Chart Reviewed Documented by User: Heather Brian MD 03/30/22 09:18 [facility] Past Medical History Medical History (Updated 01/23/22 @ 10:16 by Bryon Palma MD) Abnormal barium swallow Chronic cough Dementia Dysphagia Hiatal hernia Pulmonary nodules Surgical History Surgical History (Updated 03/27/22 @ 14:42 by Toshia Solano RN) Hx of cystoscopy Social History Social History Household Members: Family Alcohol intake: former Patient Tobacco Use Status: Former Tobacco user Advance Directives: No Advance Directives Information Provided: Yes Meds Allergies Allergy/AdvReac Type Severity Reaction Status Date / Time No Known Allergies Allergy Verified 01/23/22 09:48 [No Known Allergies*] Home Medications Medication Instructions Recorded Confirmed Last Taken Type aspirin 81 mg chewable tablet 1 tab PO DAILY 03/29/21 03/27/22 Unknown History carvedilol 12.5 mg tablet 12.5 mg PO BID 03/29/21 03/27/22 Unknown History citalopram 20 mg tablet 20 mg PO DAILY 03/29/21 03/27/22 Unknown History furosemide 20 mg tablet 20 mg PO DAILY 03/29/21 03/27/22 Unknown History memantine 10 mg tablet 10 mg PO BID 03/29/21 03/27/22 Unknown History metformin 500 mg tablet,extended 500 mg PO BID 03/29/21 03/27/22 Unknown History release 24 hr nifedipine 30 mg tablet,extended 30 mg PO DAILY 03/29/21 03/27/22 Unknown History release 24 hr quetiapine 25 mg tablet 25 mg PO BEDTIME 03/29/21 03/27/22 Unknown History sitagliptin phosphate 25 mg tablet 25 mg PO DAILY 03/29/21 03/27/22 Unknown History (Januvia) cholecalciferol (vitamin D3) 25 25 mcg PO DAILY 12/23/21 03/27/22 Unknown History mcg (1,000 unit) capsule (Vitamin D3) cyanocobalamin (vitamin B-12) 500 500 mcg sublingual DAILY 12/23/21 03/27/22 Unknown History mcg disintegrating tablet,sublingual melatonin 5 mg tablet 5 mg PO BEDTIME 12/23/21 03/27/22 Unknown History lidocaine 5 % topical patch 1 patch topical DAILY 01/13/22 01/23/22 Unknown History Exam Airway Mallampati Class: II TM Dist: >3cm Neck ROM: Full Heart: rrr Lungs: cta Assessment and Plan Final Anesthetic Review NPO: Yes ASA Class: III Final Preanesthetic Review: No Changes in Pt Med Stat, Meds/Allgs Chart Reviewed, Consent Obtained/Reviewed and Anes Risks/Benef Reviewed Patient Risk: Low Procedure Risk: Low Anesthetic Plan Anesthetic Plan: MAC: and Agree w/ Assess. and Plan Disposition: Standard PACU
[2022-03-30 09:38] VITALS: BP 187/83; PULSE 78; RESP 16; TEMP 36.3
--- NOTE | 2022-03-30 09:47 | MHC.SHP ---
Pre-Procedural Eval Section A Date of Service: 03/30/22 Section B Chief Complaint: Dysphagia, anemia, diarrhea Details of Present Illness: 86 y.o F here for difficulty swallowing (hx of schatzki's ring) and diarrhea Present Medications: see Short Stay Collaborative assessment Medical History: Significant History (dementia, hiatal hernia, pulm nodules) History of Previous Operations: No relevant previous surgery Allergies: Allergies Allergy/AdvReac Type Severity Reaction Status Date / Time No Known Allergies Allergy Verified 01/23/22 09:48 [No Known Allergies*] Review of Systems Review of Systems Comment: limited review of systems, consent was obtained with the help of the daughter as well Exam Exam Comment: Gen appear: No acute distress, well nourished HEENT: no icterus Chest: No overt resp distress Abd: soft, nontender, nondistended Psych: Stable affect, answering questions appropriately Neuro: A/Ox3 noted to move all extremities spontaneously Ext: no peripheral edema Plan Diagnosis/Plan: Unchanged I have reviewed the history and physical and performed a pertinent physical examination on my patient. No changes have occurred unless specified. Time Spent With Patient Time: Total time managing care of this patient today ____ minutes.
[2022-03-30] MEDS: Lactated Ringers 1,000 ML 100 ML IVCONT (09:53)
--- NOTE | 2022-03-30 09:53 | P.OP_ITS ---
Operative Note Operative Note Date of Service: 03/30/22 Narrative: Procedure:?Esophagogastroduodenoscopy and Colonoscopy Indication:?Dysphagia, diarrhea Endoscopist:?Daya Willett MD Anesthesia Provider:?Dr Romero? Snehal Anesthesia type:?MAC Instrument:?Olympus GIF-H190 and PCF-H190L EGD Procedure:?? The procedure, indications, preparation and potential complications were reviewed with the patient's daughter (healthcare proxy) who indicated understanding and gave written informed consent to proceed. A physical exam was performed. The endoscope was introduced through the mouth, and advanced to the second part of duodenum. The mucosa was carefully examined on slow withdrawal of the endoscope. The patient tolerated the procedure well. There were no immediate complications.? ? EGD Findings:? * Esophagus:? 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 Schatzki's ring noted at GE junction at 34 cm. Scope traversed through the ring without difficulty. There was a small hiatal hernia with the diaphragmatic pinch noted at 35 cm. * Stomach:?A few erosions with associated erythema and mucosal edema were noted in the antrum. Random cold forceps gastric biopsies were taken to rule out H Pylori infection.? * Duodenum:? Normal duodenum mucosa. Cold forceps biopsies were taken from duodenal bulb and second portion of the duodenum to rule out celiac sprue. Additional interventions: A fixed-wire esophageal balloon was introduced through the scope and placed at the level of Schatzki's ring. The balloon was gradually insufflated from 15 mm to 16.5 mm. Significant resistance was felt at 16.5 mm. The balloon was then deflated. Scant heme noted at the 5 o clock location of Schatzki's ring. Colonoscopy Procedure:? The patient was then turned for the colonoscopy. A digital rectal exam was performed which was normal. The colonoscope was then inserted through the anus and advanced through the colon to the cecum at 70 cm. The appendiceal orifice and ileocecal valve was identified.? Mucosa was carefully examined under high definition white light as the instrument was slowly withdrawn in a retrograde panoramic fashion. Retroflexion was performed in rectum. The procedure was not difficult. There were no immediate obvious complications. The quality of the prep was BBPS: 2+2+1 = inadequate in left colon. Withdrawal time 10 minutes. Limitations: Poor prep Colonoscopy findings: Mucosa: Normal colon mucosa to the extent visualised. Cold forceps biopsies were taken from right and left colon to rule out microscopic colitis. Protruding lesions: * Small internal hemorrhoids without stigmata of recent bleeding.? Excavated lesions: * Numerous large mouthed diverticula noted throughout the left colon. Impression:? * Inlet patch * Schatzki's ring (dilation) * Gastritis (biopsy) * Normal duodenum (biopsy) * Normal colon mucosa (biopsy) * Poor prep on left side * Diverticulosis * Internal hemorrhoids Recommendations:?? * Follow path results * Can consider repeat dilation if dysphagia recurs * Poor prep in L colon, however colonoscopy was performed for diarrhea. No further CRC screening recommended due to age. * Avoid NSAIDs. Above has been reviewed with the patient's daughter. Relevant educational hand outs were provided at discharge.?
[2022-03-30 09:58] LABS: Glucose, Whole Blood 100 mg/dL (60-115)
[2022-03-30 10:55] VITALS: BP 108/67; PULSE 74; RESP 18; TEMP 36.2; O2SAT 99
[2022-03-30 11:10] VITALS: BP 110/77; PULSE 76; RESP 16; TEMP 36.1; O2SAT 100
[2022-03-30 11:25] VITALS: BP 119/74; PULSE 73; RESP 16; TEMP 36.1; O2SAT 100
[2022-03-30 11:40] VITALS: BP 120/78; PULSE 76; RESP 16; TEMP 36.1; O2SAT 100
== END 2022-03-30 12:15 | disposition home or self-care (01) ==
PROVIDERS: PCP Internal Medicine; Visit Provider Internal Medicine
PROC: (CPT 45380; principal; 2022-03-30 10:00)
DX: R19.7 Diarrhea, unspecified (principal); D64.9 Anemia, unspecified; K57.30 Diverticulosis of large intestine without perforation or abscess without bleeding; K64.8 Other hemorrhoids; R13.10 Dysphagia, unspecified; K22.2 Esophageal obstruction; K29.60 Other gastritis without bleeding; K44.9 Diaphragmatic hernia without obstruction or gangrene; Q39.8 Other congenital malformations of esophagus; F03.90 Unspecified dementia, unspecified severity, without behavioral disturbance, psychotic disturbance, mood disturbance, and anxiety; R91.8 Other nonspecific abnormal finding of lung field
CPT/HCPCS: 45380; 43249; 43239; 82947; 88305; 88342; C1726

== ENCOUNTER → 2022-04-14 12:14 | Outpatient (BNVA) | payer OTHER, SELFPAY | PROVIDERS: PCP Internal Medicine; Referring Provider Internal Medicine; Visit Provider Internal Medicine | DX: K22.2 Esophageal obstruction (principal); K58.0 Irritable bowel syndrome with diarrhea; R19.7 Diarrhea, unspecified; R13.10 Dysphagia, unspecified | CPT/HCPCS: 99212 ==

== ENCOUNTER 2022-05-01 13:12 | Outpatient (REF) | payer OTHER, SELFPAY ==
[2022-05-04 09:39] LABS: HPV mRNA E6/E7 rflx Not Detected (Not Detected)
== END 2022-05-01 13:13 | disposition home or self-care (01) ==
LOC: HO.LNP 13:12
PROVIDERS: Visit Provider Obstetrics & Gynecology
DX: N95.0 Postmenopausal bleeding (principal)
CPT/HCPCS: 58100; 87624; 88142; 88305; 99202

== ENCOUNTER → 2022-05-02 09:25 | Outpatient (BNVA) | payer OTHER, SELFPAY | PROVIDERS: PCP Internal Medicine; Visit Provider Surgery | DX: K80.20 Calculus of gallbladder without cholecystitis without obstruction (principal); K22.2 Esophageal obstruction; K58.0 Irritable bowel syndrome with diarrhea; M54.2 Cervicalgia; R19.7 Diarrhea, unspecified | CPT/HCPCS: 99212 ==

== ENCOUNTER → 2022-05-22 09:43 | Outpatient (BNVA) | payer OTHER, SELFPAY | PROVIDERS: PCP Internal Medicine; Visit Provider Obstetrics & Gynecology | DX: N95.0 Postmenopausal bleeding (principal); N84.0 Polyp of corpus uteri; Z98.890 Other specified postprocedural states | CPT/HCPCS: 99212 ==

== ENCOUNTER → 2022-06-16 10:00 | Outpatient (BNVA) | payer OTHER, SELFPAY | PROVIDERS: PCP Internal Medicine; Referring Provider Internal Medicine; Visit Provider Internal Medicine | DX: K58.0 Irritable bowel syndrome with diarrhea (principal); K22.2 Esophageal obstruction; R19.7 Diarrhea, unspecified; R13.10 Dysphagia, unspecified | CPT/HCPCS: 99212 ==

== ENCOUNTER 2022-07-10 10:10 | Outpatient (REF) | payer OTHER, SELFPAY ==
[2022-07-10 13:12] LABS: Anion Gap 13 (12-20); Blood Urea Nitrogen 25 mg/dL (9-16); Calcium 9.6 mg/dL (8.4-10.2); Carbon Dioxide 28 mmol/L (22-29); Chloride 107 mmol/L (96-108); Cholesterol 207 mg/dL; Estimated Glomerular Filt Rate 54; Glucose Random 96 mg/dL (60-115); HDL Cholesterol 42 mg/dL; LDL Cholesterol Calculated 138 mg/dl; Potassium 4.6 mmol/L (3.3-5.1); Sodium 143 mmol/L (135-145); Triglycerides 139 mg/dL
== END 2022-07-10 10:11 | disposition home or self-care (01) ==
LOC: HO.LAB 10:10
PROVIDERS: PCP Internal Medicine; Visit Provider Internal Medicine
DX: I10 Essential (primary) hypertension (principal); M54.2 Cervicalgia; R50.9 Fever, unspecified; R53.1 Weakness
CPT/HCPCS: 36415; 80048; 80061

== ENCOUNTER 2022-07-10 10:26 | Outpatient (REF) | payer OTHER, SELFPAY ==
--- NOTE | ~2022-07-10 | MR_ITS ---
EXAMINATION: MR CERVICAL SPINE WITHOUT CONTRAST MR LUMBAR SPINE WITHOUT CONTRAST CLINICAL INFORMATION: Cervicalgia. Fever. Lower back pain. COMPARISON: CT abdomen and pelvis from 01/10/2022. TECHNIQUE: MRI of the cervical and lumbar spine was obtained using routine sequences without contrast. No diagnostic axial imaging of the lumbar spine was obtained secondary to patient discomfort and inability to continue with exam. FINDINGS: Cervical Spine: Straightening of the normal cervical lordosis. Mild degenerative stepwise anterolistheses of C4-C7. Otherwise, normal anatomic alignment. Advanced degenerative disc disease at C6-C7. Moderate degenerative disc disease from C3-C6. Associated mixed Modic type discogenic endplate changes including mild Modic type I discogenic edema from C4-67. Mild marrow edema within the posterior elements of C4-C5 consistent with degenerative stress reaction. No additional suspicious marrow edema. The vertebral body heights are well-maintained. No demonstrated spinal cord signal abnormalities. Limited evaluation of the soft tissues of the neck without demonstrated abnormalities. The flow voids of the major cervical vessels are maintained. Normal appearance of the cervicomedullary junction and visualized posterior fossa. SPINAL LEVELS: C2-C3: No. There is mild right and no left uncovertebral joint arthropathy. There is mild bilateral facet joint arthropathy. There is no neural foraminal stenosis. There is no spinal canal stenosis. C3-C4: Moderate disc-osteophyte complex. There is moderate left and mild right uncovertebral joint arthropathy. There is moderate bilateral facet joint arthropathy. There is moderate left and mild right neural foraminal stenosis. There is moderate spinal canal stenosis. C4-C5: Moderate disc-osteophyte complex. There is moderate bilateral uncovertebral joint arthropathy. There is moderate bilateral facet joint arthropathy. There is moderate bilateral neural foraminal stenosis. There is severe spinal canal stenosis. C5-C6: Mild disc-osteophyte complex. There is moderate bilateral uncovertebral joint arthropathy. There is moderate bilateral facet joint arthropathy. There is severe left and moderate to severe right neural foraminal stenosis. There is mild spinal canal stenosis. C6-C7: Moderate disc-osteophyte complex. There is moderate bilateral uncovertebral joint arthropathy. There is moderate bilateral facet joint arthropathy. There is moderate bilateral neural foraminal stenosis. There is no spinal canal stenosis. C7-T1: Normal annular contour. There is no uncovertebral joint arthropathy. There is mild bilateral facet joint arthropathy. There is no neural foraminal stenosis. There is no spinal canal stenosis. Lumbar Spine: Normal anatomic alignment. Chronic vertebral plana of the T12 vertebral body. Otherwise, the vertebral body heights are largely maintained. Mild degenerative disc disease at all lumbar levels. Associated mixed Modic type discogenic endplate changes. Lipid rich hemangiomas within the L2 and L4 vertebral bodies. No additional suspicious marrow edema. The conus medullaris terminates at the level of T12-L1. The distal spinal cord is normal in appearance. On sagittal examination, there appears to be moderate spinal canal stenosis at L4-L5 exacerbated by a moderate diffuse disc bulge and prominent facet joint arthropathy with ligamentum flavum hypertrophy. Mild multilevel neural foraminal stenoses from L2-L5. Mild subcutaneous edema within the soft tissues of the back from L1-L5. No additional significant abnormalities of the paraspinal musculature. Partially visualized large bilateral renal cyst (better demonstrated on prior CT of the abdomen and pelvis). Otherwise, limited evaluation of the intra-abdominal structures without significant abnormalities. The abdominal aorta is of normal contour and caliber. AXIAL SPINAL LEVELS: No diagnostic axial imaging was obtained. MR/MR cervical spine wo con IMPRESSION: 1. Moderate multilevel degenerative spondyloarthropathy of the cervical spine as described in detail above. Most notably, there is severe spinal canal stenosis at C4-C5. Moderate spinal canal stenosis at C3-C4 and mild spinal canal stenosis at C5-C6. Moderate to severe neural foraminal stenoses from C3-C7. 2. Mild to moderate multilevel degenerative spondyloarthropathy of the lumbar spine as described in detail above. Most notably, there appears to be moderate spinal canal stenosis at L4-L5. Mild multilevel neural foraminal stenoses from L2-L5.
== END 2022-07-10 10:27 | disposition home or self-care (01) ==
LOC: HO.MRI 10:26
PROVIDERS: PCP Internal Medicine; Visit Provider Internal Medicine
DX: M54.50 Low back pain, unspecified (principal); M54.2 Cervicalgia; G89.29 Other chronic pain
CPT/HCPCS: 72141; 72148

== ENCOUNTER → 2022-07-31 10:30 | Outpatient (BNVA) | payer OTHER, SELFPAY | PROVIDERS: PCP Internal Medicine; Visit Provider Nurse Practitioner Family | DX: M47.812 Spondylosis without myelopathy or radiculopathy, cervical region (principal); M48.02 Spinal stenosis, cervical region; M54.12 Radiculopathy, cervical region; M48.061 Spinal stenosis, lumbar region without neurogenic claudication; F03.90 Unspecified dementia, unspecified severity, without behavioral disturbance, psychotic disturbance, mood disturbance, and anxiety; E11.9 Type 2 diabetes mellitus without complications | CPT/HCPCS: 99202 ==

== ENCOUNTER → 2022-08-25 10:16 | Outpatient (BNVA) | payer OTHER, SELFPAY | PROVIDERS: PCP Internal Medicine; Visit Provider Physician Assistant | DX: M47.812 Spondylosis without myelopathy or radiculopathy, cervical region (principal) | CPT/HCPCS: 99202 ==

== ENCOUNTER 2022-08-28 18:04 | Emergency (ER) | payer OTHER, SELFPAY ==
[2022-08-28 18:18] VITALS: BP 172/74; BP 180/88; PULSE 106; PULSE 88; RESP 18; TEMP 37.7; O2SAT 95; O2SAT 97; BMI 23.6
--- NOTE | 2022-08-28 18:19 | ECG_ITS ---
Test Reason : LATERGY Blood Pressure : / mmHG Vent. Rate : 070 BPM Atrial Rate : 070 BPM P-R Int : 154 ms QRS Dur : 080 ms QT Int : 412 ms P-R-T Axes : 049 -20 032 degrees QTc Int : 444 ms Normal sinus rhythm Normal ECG When compared with ECG of 10-JAN-2022 23:22, No significant change was found Referred By: Shoshana Brown Electronically Signed By:BERNADETTE REICH MD
[2022-08-28 18:20] VITALS: BP 172/74; PULSE 106; RESP 18; TEMP 37.7; O2SAT 97
--- NOTE | 2022-08-28 18:25 | PC.NURSE ---
Alert but confused, daughter states has alz. Daughter states patient has been lethargic for the past few days and has a rash .Rash noted on abdomen and arms. Moises fish was started on tramadol at the end of july. No pain or discomfort noted, no sob noted. no edema observed.
--- NOTE | 2022-08-28 18:28 | ED.GENADULT ---
HPI - General Adult General Chief complaint: General Medical Stated complaint: patient lethargic, per ems Source: family and EMS Mode of arrival: EMS Limitations: other (Dementia) History of Present Illness HPI narrative: Patient comes to emergency room by ambulance, accompanied by her daughter. Patient has history of Alzheimer's dementia and is unable to give any history. Patient's daughter reports that the patient has been sleeping more than usual. Patient states that this is the 3rd time that her mother over sleeps. Patient usually goes to bed at 19:00 and on a normal day she wakes up at 10:00. Today, patient woke up at 17:00. Also, it was noted that the patient had a rash in her upper and lower extremities and in the torso. The only thing that is new is at prescription for tramadol which she uses for chronic neck pain. To the patient's daughter's knowledge, the patient has not had any fever, no URI symptoms. Patient is prone to UTIs. Patient is awake, alert, says she feels fine. However, due to the patient's history of dementia, her history is unreliable Related Data Home Medications Medication Instructions Recorded Confirmed aspirin 81 mg chewable tablet 1 tab PO DAILY 03/29/21 03/27/22 carvedilol 12.5 mg tablet 12.5 mg PO BID 03/29/21 03/27/22 citalopram 20 mg tablet 20 mg PO DAILY 03/29/21 03/27/22 furosemide 20 mg tablet 20 mg PO DAILY 03/29/21 03/27/22 memantine 10 mg tablet 10 mg PO BID 03/29/21 03/27/22 metformin 500 mg tablet,extended 500 mg PO BID 03/29/21 03/27/22 release 24 hr nifedipine 30 mg tablet,extended 30 mg PO DAILY 03/29/21 03/27/22 release 24 hr quetiapine 25 mg tablet 25 mg PO BEDTIME 03/29/21 03/27/22 sitagliptin phosphate 25 mg tablet 25 mg PO DAILY 03/29/21 03/27/22 (Longuvia) cholecalciferol (vitamin D3) 25 25 mcg PO DAILY 12/23/21 03/27/22 mcg (1,000 unit) capsule (Vitamin D3) cyanocobalamin (vitamin B-12) 500 500 mcg sublingual DAILY 12/23/21 03/27/22 mcg disintegrating tablet,sublingual melatonin 5 mg tablet 5 mg PO BEDTIME 12/23/21 03/27/22 lidocaine 5 % topical patch 1 patch topical DAILY 01/13/22 01/23/22 loperamide 2 mg tablet 0 mg PO 04/14/22 (Anti-Diarrheal (loperamide)) celecoxib 200 mg capsule 200 mg PO DAILY 07/31/22 omeprazole 20 mg capsule,delayed 20 mg PO DAILY 07/31/22 release Previous Rx's Medication Instructions Recorded cholestyramine-aspartame 4 gram 2 g PO BID 30 days #60 ea 04/20/22 oral powder for susp in a packet (Cholestyramine Light) dicyclomine 10 mg capsule 10 mg PO TID 30 days #90 caps 04/20/22 oxycodone 5 mg tablet 2.5 mg PO BID PRN pain #5 tabs 08/28/22 prednisone 50 mg tablet 50 mg PO DAILY PRN allergic 08/28/22 symptoms #5 tabs Allergies Allergy/AdvReac Type Severity Reaction Status Date / Time No Known Allergies Allergy Verified 07/31/22 10:47 [No Known Allergies*] Review of Systems Review of Systems: Yes Unobtainable due to mental condition PMFSH Past Medical History Medical History Abnormal barium swallow Alzheimer's dementia with behavioral disturbance Chronic cough Dementia Diabetes Diabetic retinopathy Dysphagia Glaucoma Hiatal hernia Osteoporotic compression fracture of spine Pulmonary nodules Surgical History History of esophagogastroduodenoscopy (EGD) Hx of colonoscopy Hx of cystoscopy Social History Social History Household Members: Family Alcohol intake: former Patient Tobacco Use Status: Never used Tobacco Smoked in Last 30 Days: No Use of substances other than those prescribed or required for medical reasons: No Advance Directives: No Advance Directives Information Provided: No Physical Exam ED Vital Signs: Vital Signs - 24 hr 08/28/22 18:18 08/28/22 18:20 08/28/22 18:50 Temperature 100 F 100 F 99.5 F Pulse Rate 106 H 106 H Respiratory Rate 18 18 Blood Pressure 172/74 H 172/74 H Pulse Oximetry 97 97 Oxygen Delivery Method Room Air Room Air 08/28/22 19:20 08/28/22 20:54 08/28/22 21:51 Temperature 98.4 F 99.4 F Pulse Rate 75 70 77 Respiratory Rate 16 18 16 Blood Pressure 192/86 H 161/74 H 174/80 H Pulse Oximetry 96 96 96 Oxygen Delivery Method Room Air Room Air Room Air BMI result Body Mass Index 23.6 Const Other: Appearance: Alert. Oriented X1. No acute distress. Eyes: Pupils equal, round and reactive to light. ENT: Pharynx normal. Neck: Normal inspection. Neck supple. No lymph nodes noted. No crepitus CVS: Normal heart rate and rhythm. Pulses normal. Normal S1 and S2 Respiratory: No respiratory distress. Breath sounds normal. No Wheezing. No rales Abdomen: Soft and nontender. No rigidity. No distention. Skin: Skin warm and dry. Normal skin color. Patient has urticaria in bilateral upper and lower extremities and in the back, chest and abdomen Extremities: No lower extremity edema. No Lacerations. No Rash Neuro: Oriented X 1, No motor deficit. No sensory deficit. Moving all extremities. No slurred speech. CN 2 through 12 grossly intact Psych: calm, cooperative, normal affect Course Course Course Narrative: -patient does not seem in any distress, patient awake, alert, states she has no complaints. -patient's labs and imaging pending Medications Administered Generic Name Dose Route Start Last Admin Trade Name Freq PRN Reason Stop Dose Admin Magnesium Sulfate 2 gm in 50 mls @ 25 mls/hr 08/28/22 20:23 08/28/22 20:36 Magnesium Sulfate/H2o IV 08/28/22 22:22 25 mls/hr ONCE ONE Administration Discontinued Medications Generic Name Dose Route Start Last Admin Trade Name Freq PRN Reason Stop Dose Admin Diphenhydramine HCl 12.5 mg 08/28/22 18:25 08/28/22 19:44 Diphenhydramine Hcl 50 Mg/Ml Vial IVPUSH 08/28/22 18:26 12.5 mg ONCE ONE Administration Famotidine 20 mg 08/28/22 18:20 08/28/22 19:44 Famotidine/Pf 20 Mg/2 Ml Vial IVPUSH 08/28/22 18:21 20 mg ONCE ONE Administration Methylprednisolone Sodium Succinate 125 mg 08/28/22 18:20 08/28/22 19:44 Methylprednisolone Sod Succ 125 Mg/2 Ml Vial IVPUSH 08/28/22 18:21 125 mg ONCE ONE Administration Medical Decision Making Medical Decision Making [facility] Narrative: -patient's hives are clearing up. -I discussed with the patient to stop taking tramadol. -patient's daughter states that the prolong sleeping. It started even before the 1st time that she took tramadol. Patient is asymptomatic, just sleeps long time, wakes up at baseline. It is possible that this may be from progressing dementia, discussed the labs with the patient and her daughter, no UTI -magnesium was low, repleted IV, will recheck labs and if appropriate, patient can be discharged -patient has history of severe chronic pain in the neck and lumbar region, patient has an appointment pending according to the daughter for steroid injections. In the meantime, we will switch her medications to low-dose oxycodone -is management/PT consult were offered, patient has other declined, she states that she is doing well taking care of her mother at home. Seems that patient is well taking care of, no concerns. -sign out given to Dr. Ortiz Lab Data [facility] Lab Attestation statement: I reviewed the patient's lab results. 08/28/22 19:36 08/28/22 19:36 Labs: Lab Results 08/28/22 08/28/22 08/28/22 Range/Units 18:51 19:36 19:36 WBC 6.0 (4.8-10.8) X10*3/uL RBC 3.57 L (4.20-5.50) X10*6/uL Hgb 10.7 L (12.0-16.0) g/dl Hct 33.2 L (37.0-47.0) % MCV 93.0 (80.0-98.0) fL MCH 30.0 (27.0-33.0) pg MCHC 32.2 (31.0-35.0) g/dl RDW 13.3 (11.0-16.0) % Plt Count 219 (160-400) X10*3/uL MPV 11.2 (9.4-12.3) fL Immature Gran % (Auto) 0.2 (0.0-0.4) % Neut % (Auto) 47.0 (45-73) % Lymph % (Auto) 37.4 (20-40) % Barber % (Auto) 8.4 (2-11) % Eos % (Auto) 6.2 H (0-4) % Baso % (Auto) 0.8 (0-2) % Lymph # (Auto) 2.2 (1.2-4.9) X10*3/uL Barber # (Auto) 0.5 (0.1-1.2) X10*3/uL Eos # (Auto) 0.4 (0.0-0.4) X10*3/uL Baso # (Auto) 0.1 (0.0-0.2) X10*3/uL Abs Immat Gran (auto) 0.01 (0.00-0.03) X10*3/uL Absolute Neuts (auto) 2.8 (2.0-8.3) x10*3/uL Absolute Nucleated RBC 0.000 (0.0-0.012) X10*3/uL Nucleated RBC % (auto) 0.0 (0.0-0.2) /100WBC PT (10.0-13.1) SEC INR (0.9-1.1) Sodium 143 (135-145) mmol/L Potassium 4.1 (3.3-5.1) mmol/L Chloride 107 (96-108) mmol/L Carbon Dioxide 26 (22-29) mmol/L Anion Gap 14 (12-20) BUN 20 H (9-16) mg/dL Creatinine 0.85 (0.5-1.4) mg/dL Estim Creat Clear Calc 34.5 Estimated GFR > 60 Random Glucose 87 (60-115) mg/dL Lactic Acid (0.5-2.0) mmol/L Calcium 9.6 (8.4-10.2) mg/dL Magnesium 1.3 L* (1.6-2.6) mg/dL Total Bilirubin 0.7 (0.0-1.0) mg/dL Direct Bilirubin 0.2 (0.0-0.5) mg/dL AST 18 (5-31) U/L ALT 11 (0-31) U/L Alkaline Phosphatase 58 (39-117) U/L Troponin I High Sens (<3.5-17.0) ng/L Total Protein 6.8 (6.5-8.0) g/dL Albumin 3.8 (3.5-5.0) g/dL TSH (0.32-4.0) uIU/mL Urine Color Yellow Urine Appearance Clear Urine pH 6.5 (5.0-9.0) Ur Specific [place] 1.015 (1.005-1.025) Urine Protein Negative (Neg-Trace) mg/dL Urine Glucose (UA) Negative (Negative) mg/dL Urine Ketones Negative (Negative) mg/dL Urine Blood Negative (Negative) Urine Nitrite Negative (Negative) Ur Leukocyte Esterase Negative (Negative) 08/28/22 08/28/22 08/28/22 Range/Units 19:36 19:36 19:36 WBC (4.8-10.8) X10*3/uL RBC (4.20-5.50) X10*6/uL Hgb (12.0-16.0) g/dl Hct (37.0-47.0) % MCV (80.0-98.0) fL MCH (27.0-33.0) pg MCHC (31.0-35.0) g/dl RDW (11.0-16.0) % Plt Count (160-400) X10*3/uL MPV (9.4-12.3) fL Immature Gran % (Auto) (0.0-0.4) % Neut % (Auto) (45-73) % Lymph % (Auto) (20-40) % Barber % (Auto) (2-11) % Eos % (Auto) (0-4) % Baso % (Auto) (0-2) % Lymph # (Auto) (1.2-4.9) X10*3/uL Barber # (Auto) (0.1-1.2) X10*3/uL Eos # (Auto) (0.0-0.4) X10*3/uL Baso # (Auto) (0.0-0.2) X10*3/uL Abs Immat Gran (auto) (0.00-0.03) X10*3/uL Absolute Neuts (auto) (2.0-8.3) x10*3/uL Absolute Nucleated RBC (0.0-0.012) X10*3/uL Nucleated RBC % (auto) (0.0-0.2) /100WBC PT 12.0 (10.0-13.1) SEC INR 1.0 (0.9-1.1) Sodium (135-145) mmol/L Potassium (3.3-5.1) mmol/L Chloride (96-108) mmol/L Carbon Dioxide (22-29) mmol/L Anion Gap (12-20) BUN (9-16) mg/dL Creatinine (0.5-1.4) mg/dL Estim Creat Clear Calc Estimated GFR Random Glucose (60-115) mg/dL Lactic Acid 0.9 (0.5-2.0) mmol/L Calcium (8.4-10.2) mg/dL Magnesium (1.6-2.6) mg/dL Total Bilirubin (0.0-1.0) mg/dL Direct Bilirubin (0.0-0.5) mg/dL AST (5-31) U/L ALT (0-31) U/L Alkaline Phosphatase (39-117) U/L Troponin I High Sens 6.9 (<3.5-17.0) ng/L Total Protein (6.5-8.0) g/dL Albumin (3.5-5.0) g/dL TSH (0.32-4.0) uIU/mL Urine Color Urine Appearance Urine pH (5.0-9.0) Ur Specific [place] (1.005-1.025) Urine Protein (Neg-Trace) mg/dL Urine Glucose (UA) (Negative) mg/dL Urine Ketones (Negative) mg/dL Urine Blood (Negative) Urine Nitrite (Negative) Ur Leukocyte Esterase (Negative) 08/28/22 Range/Units 19:36 WBC (4.8-10.8) X10*3/uL RBC (4.20-5.50) X10*6/uL Hgb (12.0-16.0) g/dl Hct (37.0-47.0) % MCV (80.0-98.0) fL MCH (27.0-33.0) pg MCHC (31.0-35.0) g/dl RDW (11.0-16.0) % Plt Count (160-400) X10*3/uL MPV (9.4-12.3) fL Immature Gran % (Auto) (0.0-0.4) % Neut % (Auto) (45-73) % Lymph % (Auto) (20-40) % Barber % (Auto) (2-11) % Eos % (Auto) (0-4) % Baso % (Auto) (0-2) % Lymph # (Auto) (1.2-4.9) X10*3/uL Barber # (Auto) (0.1-1.2) X10*3/uL Eos # (Auto) (0.0-0.4) X10*3/uL Baso # (Auto) (0.0-0.2) X10*3/uL Abs Immat Gran (auto) (0.00-0.03) X10*3/uL Absolute Neuts (auto) (2.0-8.3) x10*3/uL Absolute Nucleated RBC (0.0-0.012) X10*3/uL Nucleated RBC % (auto) (0.0-0.2) /100WBC PT (10.0-13.1) SEC INR (0.9-1.1) Sodium (135-145) mmol/L Potassium (3.3-5.1) mmol/L Chloride (96-108) mmol/L Carbon Dioxide (22-29) mmol/L Anion Gap (12-20) BUN (9-16) mg/dL Creatinine (0.5-1.4) mg/dL Estim Creat Clear Calc Estimated GFR Random Glucose (60-115) mg/dL Lactic Acid (0.5-2.0) mmol/L Calcium (8.4-10.2) mg/dL Magnesium (1.6-2.6) mg/dL Total Bilirubin (0.0-1.0) mg/dL Direct Bilirubin (0.0-0.5) mg/dL AST (5-31) U/L ALT (0-31) U/L Alkaline Phosphatase (39-117) U/L Troponin I High Sens (<3.5-17.0) ng/L Total Protein (6.5-8.0) g/dL Albumin (3.5-5.0) g/dL TSH 0.77 (0.32-4.0) uIU/mL Urine Color Urine Appearance Urine pH (5.0-9.0) Ur Specific [place] (1.005-1.025) Urine Protein (Neg-Trace) mg/dL Urine Glucose (UA) (Negative) mg/dL Urine Ketones (Negative) mg/dL Urine Blood (Negative) Urine Nitrite (Negative) Ur Leukocyte Esterase (Negative) Discharge Plan Discharge Clinical Impression: Urticaria, Hypomagnesemia Patient Disposition: Home, Self-Care Instructions: Urticaria (ED), Hypomagnesemia (ED) Additional Instructions: Please follow-up with your primary care physician tomorrow. If you have any worsening or new symptoms, please return to the emergency room or call 911 Prescriptions: New prednisone 50 mg tablet 50 mg PO DAILY PRN (Reason: allergic symptoms) Qty: 5 0RF oxycodone 5 mg tablet 2.5 mg PO BID PRN (Reason: pain) Qty: 5 0RF Rx Instructions: Partial Fill upon patient request. No Action cholestyramine-aspartame [Cholestyramine Light] 4 gram powder in packet 2 g PO BID 30 Days Qty: 60 2RF Rx Instructions: administer w/meal; avoid other meds within 1hr before or 4-6hr after dose dicyclomine 10 mg capsule 10 mg PO TID 30 Days Qty: 90 2RF Januvia 25 mg tablet 25 mg PO DAILY memantine 10 mg tablet 10 mg PO BID metformin 500 mg tablet extended release 24 hr 500 mg PO BID furosemide 20 mg tablet 20 mg PO DAILY aspirin 81 mg tablet,chewable 1 tab PO DAILY citalopram 20 mg tablet 20 mg PO DAILY carvedilol 12.5 mg tablet 12.5 mg PO BID quetiapine 25 mg tablet 25 mg PO BEDTIME nifedipine 30 mg tablet extended release 24hr 30 mg PO DAILY cholecalciferol (vitamin D3) [Vitamin D3] 25 mcg (1,000 unit) capsule 25 mcg PO DAILY melatonin 5 mg tablet 5 mg PO BEDTIME cyanocobalamin (vitamin B-12) 500 mcg tablet,disintegrating 500 mcg sublingual DAILY lidocaine 5 % adhesive patch,medicated 1 patch topical DAILY loperamide [Anti-Diarrheal (loperamide)] 2 mg tablet 0 mg PO omeprazole 20 mg capsule,delayed release(DR/EC) 20 mg PO DAILY celecoxib 200 mg capsule 200 mg PO DAILY
[2022-08-28 18:50] VITALS: TEMP 37.5
[2022-08-28 19:00] LABS: Appearance Urine Clear; Color Urine Yellow; Glucose Urine UA Negative (Negative); Leukocyte Esterase Urine Negative (Negative); Nitrite Urine Negative (Negative); PH 6.5 (5.0-9.0); Specific Gravity - Urine 1.015 (1.005-1.025); Urine Blood Negative (Negative); Urine Ketones Negative (Negative); Urine Protein Negative (Neg-Trace)
[2022-08-28 19:20] VITALS: BP 192/86; PULSE 75; RESP 16; TEMP 36.9; O2SAT 96
--- NOTE | 2022-08-28 19:24 | PC.NURSE ---
ASSUMED CARE OF PT AT 1900 - MEDS FROM 182 NOT YET GIVEN, LABS/IV NOT YET ESTABLISHED BY PREVIOUS DAY SHIFT RN. OBTAINING LAB WORK AND IV NOW. WILL ADMINISTER MEDS ORDERED NEXT. PT RESTING COMFORTABLY ON STRETCHER IN NO APPARENT DISTRESS. DAUGHTER AT BESIDE. VITAL SIGNS UPDATED WILL CTM
[2022-08-28] MEDS: methylPREDNISolone Sod Succ 125 MG/2 ML VIAL IVPUSH (19:44)
[2022-08-28] MEDS: Famotidine/PF 20 MG/2 ML VIAL IVPUSH (19:44)
[2022-08-28] MEDS: diphenhydrAMINE HCL 50 MG/ML VIAL 12.5 MG IVPUSH (19:44)
[2022-08-28 19:46] LABS: MANUAL DIFF FLAG NO
[2022-08-28 19:48] LABS: Basophils Absolute Auto 0.1 X10*3/uL (0.0-0.2); Basophils Percent Auto 0.8 % (0-2); Eosinophils Absolute Auto 0.4 X10*3/uL (0.0-0.4); Eosinophils Percent Auto 6.2 % (0-4); Hematocrit 33.2 % (37.0-47.0); Hemoglobin 10.7 g/dl (12.0-16.0); Imm Gran Abs Auto 0.01 X10*3/uL (0.00-0.03); Imm Gran Pct Auto 0.2 % (0.0-0.4); Lymphocytes Absolute Auto 2.2 X10*3/uL (1.2-4.9); Lymphocytes Percent Auto 37.4 % (20-40); Mean Corpuscular HGB Conc 32.2 g/dl (31.0-35.0); Mean Platelet Volume 11.2 fL (9.4-12.3); Monocytes Absolute Auto 0.5 X10*3/uL (0.1-1.2); Monocytes Percent Auto 8.4 % (2-11); Neutrophils Absolute Auto 2.8 x10*3/uL (2.0-8.3); Platelet Count 219 X10*3/uL (160-400); Red Blood Count 3.57 X10*6/uL (4.20-5.50); Red Cell Distribution Width 13.3 % (11.0-16.0)
[2022-08-28 20:02] LABS: Lactic Acid 0.9 mmol/L (0.5-2.0)
[2022-08-28 20:10] LABS: Alanine Aminotransferase 11 U/L (0-31); Albumin Level 3.8 g/dL (3.5-5.0); Alkaline Phosphatase 58 U/L (39-117); Anion Gap 14 (12-20); Aspartate Amino Transferase 18 U/L (5-31); Bilirubin Direct 0.2 mg/dL (0.0-0.5); Bilirubin Total 0.7 mg/dL (0.0-1.0); Blood Urea Nitrogen 20 mg/dL (9-16); Calcium 9.6 mg/dL (8.4-10.2); Carbon Dioxide 26 mmol/L (22-29); Chloride 107 mmol/L (96-108); Creatinine Clr Calc Pharmacy 34.5; Estimated Glomerular Filt Rate > 60; Glucose Random 87 mg/dL (60-115); Magnesium 1.3 mg/dL (1.6-2.6); Potassium 4.1 mmol/L (3.3-5.1); Sodium 143 mmol/L (135-145); Total Protein 6.8 g/dL (6.5-8.0)
[2022-08-28 20:15] LABS: Troponin-I High Sensitivity 6.9 ng/L (<3.5-17.0)
[2022-08-28 20:29] LABS: TSH reflex Free T4 0.77 uIU/mL (0.32-4.0)
[2022-08-28] MEDS: Magnesium Sulfate/H2O 2 GM/50 ML PIGGYBACK IV (20:36)
--- NOTE | 2022-08-28 20:41 | PC.NURSE ---
Pt alert and responds to verbal stimuli, yemeni speaking only. No signs of distress. Pts daughter at bedside. Pt medicated per may. wctm.
[2022-08-28 20:54] VITALS: BP 161/74; PULSE 70; RESP 18; O2SAT 96
--- NOTE | 2022-08-28 21:33 | PC.NURSE ---
Provider in to assess pt.
[2022-08-28 21:51] VITALS: BP 174/80; PULSE 77; RESP 16; TEMP 37.4; O2SAT 96
[2022-08-28 22:18] LABS: Magnesium 2.3 mg/dL (1.6-2.6)
== END 2022-08-28 22:44 | disposition home or self-care (01) ==
PROVIDERS: Emergency Provider Emergency Medicine
DX: L50.9 Urticaria, unspecified (principal); E83.42 Hypomagnesemia; G30.9 Alzheimer's disease, unspecified; F02.80 Dementia in other diseases classified elsewhere, unspecified severity, without behavioral disturbance, psychotic disturbance, mood disturbance, and anxiety; M54.2 Cervicalgia; G89.29 Other chronic pain; E11.319 Type 2 diabetes mellitus with unspecified diabetic retinopathy without macular edema; Z79.899 Other long term (current) drug therapy
CPT/HCPCS: 36415; 80048; 80076; 81003; 83605; 83735; 84443; 84484; 85025; 85610; 87040; 93005; 96365; 96366; 96375; 99284; 99285; J1200; J2930; J3475

== ENCOUNTER 2022-10-06 10:15 | Outpatient (AMB) | payer OTHER, SELFPAY ==
--- NOTE | 2022-10-06 10:38 | A.OFFVIS_ITS ---
Intake Vital Signs 10/06/22 10:45 Height 5 ft 2 in Weight 120 lb BMI 21.9 BP 124/59 L Blood Pressure Location Lt brachial Position Sitting Respiration 14 Pulse 77 Pulse Source Pulse Oximeter Intake Visit Reasons: TRIGGER POINT INJECTIONS Allergies No Known Allergies [No Known Allergies*] Allergy (Verified 09/15/22 11:45) HPI TRIGGER POINT INJECTIONS HPI Details 87-year-old female presenting today for trigger point injections. 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 Patient presents for scheduled procedure. Denies any recent cough, cold, infection, fever or other significant changes in medical history since last office visit. [facility] Medical History (Updated 10/12/22 @ 12:13 by Orion Morejon MD) Abnormal barium swallow Alzheimer's dementia with behavioral disturbance Chronic cough Dementia Diabetes Diabetic retinopathy Dysphagia Glaucoma Hiatal hernia Myofascial muscle pain Osteoporotic compression fracture of spine Pulmonary nodules Surgical History History of esophagogastroduodenoscopy (EGD) Hx of colonoscopy Hx of cystoscopy Social History Household Members: Family Alcohol intake: former Patient Tobacco Use Status: Never used Tobacco Review of Systems Const All systems reviewed & are unremarkable except as noted in HPI and below Physical Exam Vital Signs: Last Vital Signs Pulse 77 10/06/22 10:45 Resp 14 10/06/22 10:45 BP 124/59 L 10/06/22 10:45 BMI result Body Mass Index 21.9 General: Appears afebrile. Alert and oriented. Mood and affect appropriate. Follows and participates in conversation appropriately. Respiratory effort is unlabored. Able to transition from sit to stand unassisted. Ambulates with bilaterally normal heel strike and toe off. Office Procedures Injection Trigger Point Multi Pre-procedure diagnosis: Myofascial pain Post-procedure diagnosis: Myofascial pain Site and number of trigger points: Occipitalis, bilateral Trapezius, bilateral Solution: Total volume administered 10 ml (5 ml lidocaine 1% + 5 ml bupivacaine 0.25%) The procedure, its benefits, and its risks were explained to the patient and all questions were answered. A pulse oximeter monitor was attached and the patient was monitored throughout the procedure. Prior to the start of the procedure, a ?time out? was performed to confirm correct patient, procedure, and laterality. Trigger points were identified by manual palpation and marked. The skin was cleaned with Chloraprep. A 1.5 inch 25 G needle was used. Each of the trigger points were approximated and elevated in the direction away from the body. Dry needling then took place for five seconds. Approximately 0.5 ml to 1 ml of injectate was delivered to the trigger point followed by dry needling for five seconds. This process was repeated at each trigger point site. The patient tolerated the procedure well. Post-procedure, breath sounds were equal at both sides of the chest. The patient tolerated the procedure well, without complication. The patient denied any numbness, paresthesias, or weakness. Post-procedure vitals were recorded as part of the nursing discharge note in electronic medical record. Following a period of observation, the patient was discharged in stable condition with written discharge instructions. Trigger Point Multiple: 41437- Trigger point injection =/>3 Results Reviewed Results Reviewed: 07/10/22: MR CERVICAL SPINE WITHOUT CONTRAST & MR LUMBAR SPINE WITHOUT CONTRAST FINDINGS: Cervical Spine: Straightening of the normal cervical lordosis. Mild degenerative stepwise anterolistheses of C4-C7. Otherwise, normal anatomic alignment. Advanced degenerative disc disease at C6-C7. Moderate degenerative disc disease from C3- C6. Associated mixed Modic type discogenic endplate changes including mild Modic type I discogenic edema from C4-67. Mild marrow edema within the posterior elements of C4-C5 consistent with degenerative stress reaction. No additional suspicious marrow edema. The vertebral body heights are well-maintained. No demonstrated spinal cord signal abnormalities. Limited evaluation of the soft tissues of the neck without demonstrated abnormalities. The flow voids of the major cervical vessels are maintained. Normal appearance of the cervicomedullary junction and visualized posterior fossa. SPINAL LEVELS: C2-C3: No. There is mild right and no left uncovertebral joint arthropathy. There is mild bilateral facet joint arthropathy. There is no neural foraminal stenosis. There is no spinal canal stenosis. C3-C4: Moderate disc-osteophyte complex. There is moderate left and mild right uncovertebral joint arthropathy. There is moderate bilateral facet joint arthropathy. There is moderate left and mild right neural foraminal stenosis. There is moderate spinal canal stenosis. C4-C5: Moderate disc-osteophyte complex. There is moderate bilateral uncovertebral joint arthropathy. There is moderate bilateral facet joint arthropathy. There is moderate bilateral neural foraminal stenosis. There is severe spinal canal stenosis. C5-C6: Mild disc-osteophyte complex. There is moderate bilateral uncovertebral joint arthropathy. There is moderate bilateral facet joint arthropathy. There is severe left and moderate to severe right neural foraminal stenosis. There is mild spinal canal stenosis. C6-C7: Moderate disc-osteophyte complex. There is moderate bilateral uncover tebral joint arthropathy. There is moderate bilateral facet joint arthropathy. There is moderate bilateral neural foraminal stenosis. There is no spinal canal stenosis. C7-T1: Normal annular contour. There is no uncovertebral joint arthropathy. There is mild bilateral facet joint arthropathy. There is no neural foraminal stenosis. There is no spinal canal stenosis. Lumbar Spine: Normal anatomic alignment. Chronic vertebral plana of the T12 vertebral body. Otherwise, the vertebral body heights are largely maintained. Mild degenerative disc disease at all lumbar levels. Associated mixed Modic type discogenic endplate changes. Lipid rich hemangiomas within the L2 and L4 vertebral bodies. No additional suspicious marrow edema. The conus medullaris terminates at the level of T12-L1. The distal spinal cord is normal in appearance. On sagittal examination, there appears to be moderate spinal canal stenosis at L4-L5 exacerbated by a moderate diffuse disc bulge and prominent facet joint arthropathy with ligamentum flavum hypertrophy. Mild multilevel neural foraminal stenoses from L2-L5. Mild subcutaneous edema within the soft tissues of the back from L1-L5. No additional significant abnormalities of the paraspinal musculature. Partially visualized large bilateral renal cyst (better demonstrated on prior CT of the abdomen and pelvis). Otherwise, limited evaluation of the intra-abdominal structures without significant abnormalities. The abdominal aorta is of normal contour and caliber. AXIAL SPINAL LEVELS: No diagnostic axial imaging was obtained. IMPRESSION: 1. Moderate multilevel degenerative spondyloarthropathy of the cervical spine as described in detail above. Most notably, there is severe spinal canal stenosis at C4-C5. Moderate spinal canal stenosis at C3-C4 and mild spinal canal stenosis at C5-C6. Moderate to severe neural foraminal stenoses from C3-C7. 2. Mild to moderate multilevel degenerative spondyloarthropathy of the lumbar spine as described in detail above. Most notably, there appears to be moderate spinal canal stenosis at L4-L5. Mild multilevel neural foraminal stenoses from L2-L5. Assessment & Plan Assessment & Plan (1) Degenerative arthritis of cervical spine: Code(s): M47.812 - Spondylosis without myelopathy or radiculopathy, cervical region (2) Myofascial muscle pain: Code(s): M79.18 - Myalgia, other site Plan 1. Patient is status post trigger point injections at the office today. Patient tolerated procedure well and was discharged home in stable condition with discharge instructions. All questions were answered. 2. We will follow-up in two weeks via telephone or in clinic to assess response to therapy. A follow-up appointment was made during today's visit. Scribed for Dr. Morejon by Norm Giordano, medical device assembler, on 10/06/2022. I, Dr. Morejon, have personally reviewed and agree with the information entered by the scribe. Coding Level of Care Code Procedure Only Diagnoses Degenerative arthritis of cervical spine M47.812 Myofascial muscle pain M79.18 CPT Codes Details - Trigger Point Multiple: 43244- Trigger point injection =/>3 ([id number])
[2022-10-06 10:45] VITALS: BP 124/59; PULSE 77; RESP 14; BMI 21.9
== END 2022-10-06 11:03 | disposition home or self-care (01) ==
PROVIDERS: PCP Internal Medicine; Visit Provider Internal Medicine
DX: M47.812 Spondylosis without myelopathy or radiculopathy, cervical region (principal)
CPT/HCPCS: 20553

== ENCOUNTER → 2022-10-06 10:15 | Outpatient (BNVA) | payer OTHER, SELFPAY | PROVIDERS: PCP Internal Medicine; Visit Provider Internal Medicine | DX: M79.18 Myalgia, other site (principal); M47.812 Spondylosis without myelopathy or radiculopathy, cervical region | CPT/HCPCS: 20553 ==

== ENCOUNTER 2023-01-07 16:15 | Emergency (ER) | payer MEDICARE, MEDICAID, SELFPAY ==
--- NOTE | 2023-01-07 16:34 | ED.GENADULT ---
HPI - General Adult General Chief complaint: Urogenital-Female Stated complaint: uti ? Time Seen by Provider: 01/07/23 18:40 Source: patient, family (Patient's daughter), RN notes reviewed and old records reviewed Mode of arrival: ambulatory Limitations: language barrier History of Present Illness HPI narrative: 87-year-old female presents for evaluation of possible UTI Per the patient's daughter, the patient has had foul-smelling urine, has been complaining of painful urination and urinating frequently. The symptoms started 3 days ago. The patient has been slightly more agitated She has not had any fevers or chills Related Data Home Medications Medication Instructions Recorded Confirmed aspirin 81 mg chewable tablet 1 tab PO DAILY 03/29/21 03/27/22 carvedilol 12.5 mg tablet 12.5 mg PO BID 03/29/21 03/27/22 citalopram 20 mg tablet 20 mg PO DAILY 03/29/21 03/27/22 furosemide 20 mg tablet 20 mg PO DAILY 03/29/21 03/27/22 memantine 10 mg tablet 10 mg PO BID 03/29/21 03/27/22 metformin 500 mg tablet,extended 500 mg PO BID 03/29/21 03/27/22 release 24 hr nifedipine 30 mg tablet,extended 30 mg PO DAILY 03/29/21 03/27/22 release 24 hr quetiapine 25 mg tablet 25 mg PO BEDTIME 03/29/21 03/27/22 sitagliptin phosphate 25 mg tablet 25 mg PO DAILY 03/29/21 03/27/22 (Januvia) cholecalciferol (vitamin D3) 25 25 mcg PO DAILY 12/23/21 03/27/22 mcg (1,000 unit) capsule (Vitamin D3) cyanocobalamin (vitamin B-12) 500 500 mcg sublingual DAILY 12/23/21 03/27/22 mcg disintegrating tablet,sublingual melatonin 5 mg tablet 5 mg PO BEDTIME 12/23/21 03/27/22 lidocaine 5 % topical patch 1 patch topical DAILY 01/13/22 01/23/22 loperamide 2 mg tablet 0 mg PO 04/14/22 (Anti-Diarrheal (loperamide)) celecoxib 200 mg capsule 200 mg PO DAILY 07/31/22 omeprazole 20 mg capsule,delayed 20 mg PO DAILY 07/31/22 release Previous Rx's Medication Instructions Recorded cholestyramine-aspartame 4 gram 2 g PO BID 30 days #60 ea 04/20/22 oral powder for susp in a packet (Cholestyramine Light) dicyclomine 10 mg capsule 10 mg PO TID 30 days #90 caps 04/20/22 oxycodone 5 mg tablet 2.5 mg (1/2 x 5 mg) PO BID PRN 08/28/22 pain #5 tabs prednisone 50 mg tablet 50 mg PO DAILY PRN allergic 08/28/22 symptoms #5 tabs cefuroxime axetil 250 mg tablet 250 mg PO Q12H #13 tabs 01/07/23 phenazopyridine 200 mg tablet 200 mg PO TID 6 doses #6 tabs 01/07/23 (Pyridium) Allergies Allergy/AdvReac Type Severity Reaction Status Date / Time No Known Allergies Allergy Verified 09/15/22 11:45 [No Known Allergies*] Review of Systems Constitutional: Constitutional: Denies chills and Denies fever(s) Eyes: Eyes: Denies blurry vision ENT: Denies sore throat Cardiovascular: Cardiovascular: Denies chest pain and Denies dyspnea Respiratory: Respiratory: Denies cough and Denies dyspnea Gastrointestinal: Gastrointestinal: Denies abdominal pain, Denies nausea and Denies vomiting Genitourinary: Genitourinary: Reports difficulty voiding and Reports dysuria [facility] Past Medical History Medical History (Updated 01/07/23 @ 19:52 by Geovany Bunch) Myofascial muscle pain Osteoporotic compression fracture of spine Diabetes Diabetic retinopathy Alzheimer's dementia with behavioral disturbance Glaucoma Dementia Abnormal barium swallow Dysphagia Chronic cough Hiatal hernia Pulmonary nodules Surgical History Hx of colonoscopy History of esophagogastroduodenoscopy (EGD) Hx of cystoscopy Social History Social History Household Members: Family Alcohol intake: former Patient Tobacco Use Status: Never used Tobacco Advance Directives: No Advance Directives Information Provided: Yes Physical Exam ED Vital Signs: Vital Signs - 24 hr 01/07/23 16:36 01/07/23 18:50 Temperature 98.3 F 99.0 F Pulse Rate 86 74 Respiratory Rate 16 16 Blood Pressure 148/76 H 122/64 Pulse Oximetry 98 98 Oxygen Delivery Method Room Air Room Air BMI result Body Mass Index 23.5 Const General: healthy appearing, comfortable, no acute distress, alert and awake Nutritional Appearance: well nourished HENVA Head: Yes normocephalic and Yes atraumatic Eyes Eyelids: Yes eyelids normal Conjunctivae: conjunctivae normal Sclerae: sclerae normal Corneas: corneas normal Pupils: Equal, round and reactive pupils present EOM: EOMs intact bilaterally Neck Neck: Yes full ROM Resp Effort & Inspection: normal respiratory effort, able to speak in complete sentences and not labored Skin General skin exam: elasticity normal Neuro Cranial nerves: Yes CN's II-XII intact bilaterally, Yes Equal, round and reactive pupils present and Yes Bilaterally intact EOM present Cognition (Neuro): normal cognition Extrem Other: Moving all extremities well without any obvious deformities Course Course Course Narrative: This is a rapid medical exam: Additional HPI, ROS, PE not included below will be deferred to primary provider. Patient is an 87-year-old female with history of Alzheimer's, DM, diabetic retinopathy, dysphagia, hiatal hernia presenting to the emergency department with daughter who reports that she feels patient has a UTI. States patient has been complaining of discomfort with urination, has had increased frequency of urination, new urinary incontinence, and foul smelling urine for 3 days. Also reports behavior changes, mild aggression. Plan: UA, basic labs Medications Administered Discontinued Medications Generic Name Dose Route Start Last Admin Trade Name Freq PRN Reason Stop Dose Admin Cefuroxime Axetil 250 mg 01/07/23 19:26 01/07/23 19:43 Cefuroxime Axetil 250 Mg Tablet PO 01/07/23 19:27 250 mg ONCE ONE Administration Phenazopyridine HCl 200 mg 01/07/23 19:26 01/07/23 19:43 Phenazopyridine Hcl 200 Mg Tablet PO 01/07/23 19:27 200 mg ONCE ONE Administration Medical Decision Making Medical Decision Making [facility] Narrative: 87-year-old female presents for evaluation of foul-smelling urine, urinary frequency. History exam is consistent with simple UTI. Her UA confirms UTI. Will treat with cefuroxime b.i.d. x7 days. She also given Pyridium for symptomatic care. The patient's daughter is comfortable taking her home Differential Diagnosis Differential Diagnoses: The differential diagnosis associated with the presentation includes UTI Cystitis Obstructive uropathy Abdominal pain Constipation Lab Data MDM Lab Attestation statement: I reviewed the patient's lab results. No leukocytosis. A mild anemia. Patient has a very slight hyponatremia which may be related to an mild degree of dehydration but she can treat orally with fluids. Potassium within normal limits. BUN is just above normal and a creatinine is within normal limits at 7:16 p.m.. 01/07/23 16:58 01/07/23 16:58 Labs: Lab Results 01/07/23 01/07/23 Range/Units 16:58 18:38 WBC 6.5 (4.8-10.8) X10*3/uL RBC 3.67 L (4.20-5.50) X10*6/uL Hgb 10.5 L (12.0-16.0) g/dl Hct 34.0 L (37.0-47.0) % MCV 92.6 (80.0-98.0) fL MCH 28.6 (27.0-33.0) pg MCHC 30.9 L (31.0-35.0) g/dl RDW 13.7 (11.0-16.0) % Plt Count 259 (160-400) X10*3/uL MPV 11.0 (9.4-12.3) fL Immature Gran % (Auto) 0.3 (0.0-0.4) % Neut % (Auto) 38.2 L (45-73) % Lymph % (Auto) 45.9 H (20-40) % [place] % (Auto) 10.1 (2-11) % Eos % (Auto) 4.4 H (0-4) % Baso % (Auto) 1.1 (0-2) % Lymph # (Auto) 3.0 (1.2-4.9) X10*3/uL [place] # (Auto) 0.7 (0.1-1.2) X10*3/uL Eos # (Auto) 0.3 (0.0-0.4) X10*3/uL Baso # (Auto) 0.1 (0.0-0.2) X10*3/uL Abs Immat Gran (auto) 0.02 (0.00-0.03) X10*3/uL Absolute Neuts (auto) 2.5 (2.0-8.3) x10*3/uL Absolute Nucleated RBC 0.000 (0.0-0.012) X10*3/uL Nucleated RBC % (auto) 0.0 (0.0-0.2) /100WBC Sodium 148 H (135-145) mmol/L Potassium 4.2 (3.3-5.1) mmol/L Chloride 110 H (96-108) mmol/L Carbon Dioxide 22 (22-29) mmol/L Anion Gap 20 (12-20) BUN 28 H (9-16) mg/dL Creatinine 1.16 (0.5-1.4) mg/dL Estim Creat Clear Calc 25.2 Estimated GFR 44 Random Glucose 99 (60-115) mg/dL Calcium 10.7 H D (8.4-10.2) mg/dL Total Bilirubin 0.4 (0.0-1.0) mg/dL AST 25 (5-31) U/L ALT 16 (0-31) U/L Alkaline Phosphatase 56 (39-117) U/L Total Protein 7.9 (6.5-8.0) g/dL Albumin 4.2 (3.5-5.0) g/dL Urine Color Yellow Urine Appearance Cloudy Urine pH 6.5 (5.0-9.0) Ur Specific [place] 1.015 (1.005-1.025) Urine Protein Negative (Neg-Trace) mg/dL Urine Glucose (UA) Negative (Negative) mg/dL Urine Ketones Negative (Negative) mg/dL Urine Blood Negative (Negative) Urine Nitrite Negative (Negative) Ur Leukocyte Esterase Small (1+) H (Negative) Urine RBC 3-5 H (0-2) /HPF Urine WBC 0-5 (0-5) /HPF Ur Squamous Epith Cells 3-5 (0-2) /HPF Urine Bacteria 4+ (None Seen) Hyaline Casts 0-2 (0-2) /LPF Discharge Plan Discharge Clinical Impression: Urinary tract infection Patient Disposition: Home, Self-Care Instructions: Urinary Tract Infection in Older Adults (ED) Additional Instructions: Take the antibiotic twice daily for the next 7 days. Use Pyridium as needed for urinary discomfort Drink lots of fluids Follow-up with her PCP Prescriptions: New phenazopyridine [Pyridium] 200 mg tablet 200 mg PO TID Qty: 6 0RF cefuroxime axetil 250 mg tablet 250 mg PO Q12H Qty: 13 0RF No Action cholestyramine-aspartame [Cholestyramine Light] 4 gram powder in packet 2 g PO BID 30 Days Qty: 60 2RF Rx Instructions: administer w/meal; avoid other meds within 1hr before or 4-6hr after dose dicyclomine 10 mg capsule 10 mg PO TID 30 Days Qty: 90 2RF prednisone 50 mg tablet 50 mg PO DAILY PRN (Reason: allergic symptoms) Qty: 5 0RF oxycodone 5 mg tablet 2.5 mg PO BID PRN (Reason: pain) Qty: 5 0RF Rx Instructions: Partial Fill upon patient request. Januvia 25 mg tablet 25 mg PO DAILY memantine 10 mg tablet 10 mg PO BID metformin 500 mg tablet extended release 24 hr 500 mg PO BID furosemide 20 mg tablet 20 mg PO DAILY aspirin 81 mg tablet,chewable 1 tab PO DAILY citalopram 20 mg tablet 20 mg PO DAILY carvedilol 12.5 mg tablet 12.5 mg PO BID quetiapine 25 mg tablet 25 mg PO BEDTIME nifedipine 30 mg tablet extended release 24hr 30 mg PO DAILY cholecalciferol (vitamin D3) [Vitamin D3] 25 mcg (1,000 unit) capsule 25 mcg PO DAILY melatonin 5 mg tablet 5 mg PO BEDTIME cyanocobalamin (vitamin B-12) 500 mcg tablet,disintegrating 500 mcg sublingual DAILY lidocaine 5 % adhesive patch,medicated 1 patch topical DAILY loperamide [Anti-Diarrheal (loperamide)] 2 mg tablet 0 mg PO omeprazole 20 mg capsule,delayed release(DR/EC) 20 mg PO DAILY celecoxib 200 mg capsule 200 mg PO DAILY
[2023-01-07 16:36] VITALS: BP 148/76; PULSE 86; RESP 16; TEMP 36.8; O2SAT 98; BMI 23.5
[2023-01-07 17:03] LABS: MANUAL DIFF FLAG NO
[2023-01-07 17:18] LABS: Alanine Aminotransferase 16 U/L (0-31); Albumin Level 4.2 g/dL (3.5-5.0); Alkaline Phosphatase 56 U/L (39-117); Anion Gap 20 (12-20); Aspartate Amino Transferase 25 U/L (5-31); Bilirubin Total 0.4 mg/dL (0.0-1.0); Blood Urea Nitrogen 28 mg/dL (9-16); Calcium 10.7 mg/dL (8.4-10.2); Carbon Dioxide 22 mmol/L (22-29); Chloride 110 mmol/L (96-108); Creatinine Clr Calc Pharmacy 25.2; Estimated Glomerular Filt Rate 44; Glucose Random 99 mg/dL (60-115); Potassium 4.2 mmol/L (3.3-5.1); Sodium 148 mmol/L (135-145); Total Protein 7.9 g/dL (6.5-8.0)
[2023-01-07 17:24] LABS: Basophils Absolute Auto 0.1 X10*3/uL (0.0-0.2); Basophils Percent Auto 1.1 % (0-2); Eosinophils Absolute Auto 0.3 X10*3/uL (0.0-0.4); Eosinophils Percent Auto 4.4 % (0-4); Hemoglobin 10.5 g/dl (12.0-16.0); Imm Gran Abs Auto 0.02 X10*3/uL (0.00-0.03); Imm Gran Pct Auto 0.3 % (0.0-0.4); Lymphocytes Percent Auto 45.9 % (20-40); Mean Corpuscular HGB Conc 30.9 g/dl (31.0-35.0); Mean Corpuscular Hemoglobin 28.6 pg (27.0-33.0); Mean Corpuscular Volume 92.6 fL (80.0-98.0); Monocytes Absolute Auto 0.7 X10*3/uL (0.1-1.2); Monocytes Percent Auto 10.1 % (2-11); Neutrophils Absolute Auto 2.5 x10*3/uL (2.0-8.3); Neutrophils Percent Auto 38.2 % (45-73); Platelet Count 259 X10*3/uL (160-400); Red Blood Count 3.67 X10*6/uL (4.20-5.50); Red Cell Distribution Width 13.7 % (11.0-16.0); White Blood Count 6.5 X10*3/uL (4.8-10.8)
[2023-01-07 18:49] LABS: Appearance Urine Cloudy; Color Urine Yellow; Glucose Urine UA Negative (Negative); Leukocyte Esterase Urine Small (1+) (Negative); Nitrite Urine Negative (Negative); PH 6.5 (5.0-9.0); Specific Gravity - Urine 1.015 (1.005-1.025); UMIC TRIGGER UACC YES; Urine Blood Negative (Negative); Urine Ketones Negative (Negative); Urine Protein Negative (Neg-Trace)
[2023-01-07 18:50] VITALS: BP 122/64; PULSE 74; RESP 16; TEMP 37.2; O2SAT 98
--- NOTE | 2023-01-07 18:50 | MHC.EDTECH ---
THIS PCT JUST ASSUMED CARE OF PT ,VITALS TAKEN ,PT URINE SAMPLE COLLECTED AND SENT TO LAB ,PT RESTING IN BED ,NO APPARENT DISTRESS AT THIS TIME WILL CONTINUE TO MONITOR ,PT DAUGHTER AT BEDSIDE .
[2023-01-07 19:00] LABS: Bacteria Urine 4+ (None Seen); Hyaline Casts Urine 0-2 /LPF (0-2); UACC Culture Trigger YES; WBC Urine 0-5 /HPF (0-5)
[2023-01-07] MEDS: cefuroxime axetiL 250 MG TABLET PO (19:43)
[2023-01-07] MEDS: Phenazopyridine HCL 200 MG TABLET PO (19:43)
== END 2023-01-07 20:10 | disposition home or self-care (01) ==
PROVIDERS: Registered Nurse Emergency; Emergency Provider Internal Medicine
DX: N39.0 Urinary tract infection, site not specified (principal); R30.0 Dysuria; R35.0 Frequency of micturition; Z79.899 Other long term (current) drug therapy
CPT/HCPCS: 36415; 80053; 81001; 85025; 87086; 99283; 99284

== ENCOUNTER 2023-01-29 14:08 | Outpatient (REF) | payer MEDICARE, MEDICAID, SELFPAY | END 2023-01-29 14:09 | disposition home or self-care (01) | LOC: HO.HHCL 14:08 | PROVIDERS: Visit Provider Internal Medicine | DX: R39.9 Unspecified symptoms and signs involving the genitourinary system (principal) | CPT/HCPCS: 87086 ==